=== PATIENT | male | born 1990 | race Caucasian/White ===

== ENCOUNTER 2016-12-13 07:12 | Emergency (ER) | payer MEDICAID, OTHER ==
[~2016-12-13 07:12] MED LIST: /LAMO10TA PO; ADDE30CA PO; ADDE5TAB5 PO; AMBI10TA PO; AMOX500C PO; ANBEEL MT; ATARAX OR; EFFEXOR XR PO; GABA300C3 PO; IBUP60TA PO; LAMI25TA OR; NAPR500T OR; NEUR300C PO; PAXI30TA11 PO; RISP4TAB33 PO; SERO200T PO; TRAZ100T OR; TRAZ100T2 PO; TYLE325C PO; ZANA4TAB PO
[2016-12-13 07:51] LABS: MEAN CORPUSCULAR HEMOGLOBIN 30.7 pg (27.0-33.0); MEAN CORPUSCULAR HGB CONC 34.5 g/dl (32.0-36.5); MEAN CORPUSCULAR VOLUME 89.1 fl (80.0-96.0); WHITE BLOOD COUNT 6.6 K/mm3 (4.0-10.0)
--- NOTE | 2016-12-13 08:12 | REP ---
LEFT HAND SERIES: Four views. HISTORY: Trauma. FINDINGS: Four views of the left hand demonstrate normal bones, joints, and soft tissues. No fracture or subluxation is seen. IMPRESSION: Negative views of the left hand. Signed by Jam Dumas MD 12/13/2016 08:23 A
--- NOTE | 2016-12-13 08:14 | REP ---
LEFT ELBOW SERIES: Four views. HISTORY: Trauma. FINDINGS: Four views of the left elbow demonstrate normal bones, joints, and soft tissues. No fracture subluxation or joint effusion is seen. IMPRESSION: Negative left elbow series. Signed by Jam Dumas MD 12/13/2016 08:24 A
[2016-12-13 08:27] LABS: ALBUMIN 3.9 GM/DL (3.2-5.2); ALKALINE PHOSPHATASE 80 U/L (45-117); ALT/SGPT 15 U/L (12-78); ANION GAP 6 MEQ/L (8-16); AST/SGOT 15 U/L (15-37); BILIRUBIN,DIRECT 0.3 MG/DL (0.0-0.2); BILIRUBIN,TOTAL 1.3 MG/DL (0.2-1.0); BLOOD UREA NITROGEN 15 MG/DL (7-18); CALCIUM LEVEL 8.7 MG/DL (8.5-10.1); CARBON DIOXIDE LEVEL 31 MEQ/L (21-32); CHLORIDE LEVEL 108 MEQ/L (98-107); CREATININE FOR GFR 1.12 MG/DL (0.70-1.30); GLOMERULAR FILTRATION RATE > 60.0 (>60); GLUCOSE, FASTING 87 MG/DL (70-105); POTASSIUM SERUM 3.8 MEQ/L (3.5-5.1); SODIUM LEVEL 145 MEQ/L (136-145); TOTAL PROTEIN 6.5 GM/DL (6.4-8.2)
[2016-12-13] MEDS ORDERED: GABAPENTIN 100 MG CAP As Ordered ONE ×2 (14:07→20:13)
[2016-12-13] MEDS ORDERED: LORazepam 1 MG TAB As Ordered ONE (14:07)
[2016-12-13 15:22] LABS: AMPHETAMINES LEVEL URINE NEGATIVE (NEGATIVE); BENZODIAZEPINES URINE NEGATIVE (NEGATIVE); COCAINE METABOLITE URINE POSITIVE (NEGATIVE); CONTROL LINE INT CTR LINE PRESENT; METHADONE URINE NEGATIVE (NEGATIVE); OPIATES URINE NEGATIVE (NEGATIVE); TRICYCLIC ANTIDEPRESS URINE NEGATIVE (NEGATIVE)
[2016-12-13] MEDS ORDERED: QUEtiapine FUMARATE 100 MG TAB As Ordered ONE (20:12)
[2016-12-14] MEDS ORDERED: PARoxetine 10MG TABLET As Ordered ONE (08:11)
[2016-12-14] MEDS ORDERED: GABAPENTIN 100 MG CAP As Ordered ONE (08:55)
--- NOTE | 2016-12-14 09:08 | EDDOCDS ---
Physician Documentation [facility] Name: Yoan Moreira Age: 26 yrs Sex: Male : 1990 Arrival Date: 12/13/2016 Time: 07:12 Bed BHU1 Private MD: Disposition: 12/13/16 20:33 Transfer ordered to [facility]. Diagnosis are Suicidal ideations, Adult antisocial behavior. - Reason for transfer: Higher level of care. - Accepting physician is Dr Ruiz. - Condition is Stable. - Problem is an ongoing problem. - Symptoms have improved. Historical: - Allergies: no known allergies; - Home Meds: 1. Adderall XR 30 mg Oral cp24 1 cap once daily 2. Ambien 10 mg Oral tab 1 tab once daily 3. Paxil 30 mg Oral tab 1 tab once daily 4. Seroquel 200 mg oral tab once daily 5. gabapentin 400 mg Oral cap 1 cap 3 times per day pt hasn't taken in a few weeks - PMHx: ADHD; Anxiety; Depression; impulse control disorder; Mood Disorder; - PSHx: Tonsillectomy; - Social history: Smoking status: Patient uses tobacco products, heavy tobacco smoker. No barriers to communication noted, The patient speaks fluent Macedonian, Speaks appropriately for age. - Family history: Not pertinent. - : The pt / caregiver states he / she is not on anticoagulants. Home medication list is obtained from the patient. - Exposure Risk Screening:: None identified. Vital Signs: 12/13 09:13 BP 116 / 67; Pulse 82; Resp 16; Temp 98.2(O); Pulse Ox 97% on R/A; Weight 79.38 kg / bcj 175 lbs; Height 6 ft. 2 in. (187.96 cm); Pain 00/10; 11:06 BP 122 / 56; Pulse 90; Resp 16; Temp 97.9(O); Pulse Ox 98% on R/A; Pain 0/10; bcj 19:30 BP 118 / 69; Pulse 94; Resp 18; Temp 98.4(O); Pain 0/10; mf4 02 06:08 BP 114 / 56; Pulse 59; Resp 16; Temp 96.2(O); Pain 0/10; mf4 09:02 BP 107 / 65; Pulse 83; Resp 17; Temp 98; Pulse Ox 99% on R/A; mk4 12/13 09:13 Body Mass Index 22.47 (79.38 kg, 187.96 cm) [facility] MDM: 12/13 07:28 Consult PFS/PSA/Aviation Safety Officer ordered. sd1 07:28 Consult PFS/PSA/Aviation Safety Officer: Patient's case requires discussion with on-call sd1 Psychiatrist ordered. 07:28 PSA/PFS to call Nursing Educational Program Director, to enter patient data on [place] Safe Act if patient sd1 involuntarily admitted or transferred for SI or HI ordered. 07:28 Confirm accurate psychiatric medication list and times of last dosage ordered. sd1 07:28 Detain Pt Until Medically/PFS Cleared ordered. sd1 07:29 Acetaminophen Level Ordered. EDMS 07:29 Basic Metabolic Profile Ordered. EDMS 07:29 Complete Blood Count Ordered. EDMS 07:29 Drug Eval Toxicology ED Only Ordered. EDMS 07:29 Ethyl Alcohol (ethanol) Ordered. EDMS 07:29 Liver Profile Ordered. EDMS 07:29 Salicylate Level Ordered. EDMS 07:29 Thyroid Stimulating Hormone Ordered. EDMS 07:29 Elbow, Complete Ordered. EDMS 07:49 Consult PFS/PSA/Aviation Safety Officer complete. [facility] 07:50 Hand, Complete Ordered. EDMS 07:52 REGULAR DIET PLASTIC DURBIN+DIET ordered. EDMS 08:08 M[facility] Legal paperwork was scanned into [employer] and attached to record. ac 08:20 Complete Blood Count Reviewed. sd1 08:20 Elbow, Complete Reviewed. sd1 08:20 Hand, Complete Reviewed. sd1 08:56 Acetaminophen Level Reviewed. sd1 08:56 Basic Metabolic Profile Reviewed. sd1 08:56 Liver Profile Reviewed. sd1 08:56 Salicylate Level Reviewed. sd1 08:56 Ethyl Alcohol (ethanol) Reviewed. sd1 08:56 Thyroid Stimulating Hormone Reviewed. sd1 08:56 Elbow, Complete Reviewed. sd1 08:56 Hand, Complete Reviewed. sd1 09:25 Financial registration complete. mpb 09:47 Consult PFS/PSA/Aviation Safety Officer: Patient's case requires discussion with on-call ac Psychiatrist complete. 09:47 PSA/PFS to call Nursing Educational Program Director, to enter patient data on [place] Safe [place] if patient ac involuntarily admitted or transferred for SI or HI complete. 11:21 REGULAR DIET PLASTIC DURBIN+DIET ordered. EDMS 14:04 LORazepam 2 mg PO once ordered. sd1 14:05 Gabapentin 300 mg PO once ordered. [facility] 16:47 REGULAR DIET PLASTIC DURBIN+DIET ordered. EDMS 18:35 Drug Eval Toxicology ED Only Reviewed. sd1 19:49 Gabapentin 300 mg PO once ordered. mf4 19:49 SEROquel 200 mg PO once ordered. 4 12/14 05:02 REGULAR DIET PLASTIC DURBIN+DIET ordered. EDMS 07:51 PARoxetine 30 mg PO once ordered. ml6 07:51 adderal xr 30 mg PO once ordered. ml6 08:58 Gabapentin 400 mg PO once ordered. mk4 Administered Medications: 12/13 14:10 Drug: LORazepam 2 mg [lorazepam 1 mg tablet (2 tabs)] Route: PO; [facility] 14:10 Drug: Gabapentin 300 mg [gabapentin 100 mg capsule (3 caps)] Route: PO; [facility] 20:20 Drug: Gabapentin 300 mg [gabapentin 100 mg capsule (3 caps)] Route: PO; [facility] 20:20 Drug: SEROquel 200 mg Route: PO; [facility] 12/14 08:49 Not Given (not available): adderal xr 30 mg PO once ml6 08:58 Drug: PARoxetine 30 mg [paroxetine 10 mg tablet (3 tabs)] Route: PO; mk4 08:58 Drug: Gabapentin 400 mg [gabapentin 100 mg capsule (4 caps)] Route: PO; mk4 Signatures: Dispatcher [employer] EDMS Bisi Linder MD MD sd1 Olivier Lofton RN RN bcj Carter, Andy, PSA PSA Froy Lovell RN RN ml6 Dl Adam LPN LPN 4 Beth Monge RN RN Percy Hansen DO DO [id number] Lorraine Nelson RN RN mk4 Alex Campos, Antoni Corrales mpb The chart was reviewed and I authenticate all verbal orders and agree with the evaluation and treatment provided.Corrections: (The following items were deleted from the chart) 12/13 07:57 07:29 Hand, complete+XR ordered. EDMS EDMS 07:57 07:48 Hand, complete+XR ordered. EDMS EDMS MTDD
--- NOTE | 2016-12-14 09:08 | EDDOCDS ---
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 Eval Toxicology ED Only; SPEC'M 12/13/16 14:48 Test: AMPHETAMINES LEVEL URINE; Value: NEGATIVE; Range: NEGATIVE; Status: F Test: BARBITURATES URINE; Value: NEGATIVE; Range: NEGATIVE; Status: F Test: BENZODIAZEPINES URINE; Value: NEGATIVE; Range: NEGATIVE; Status: F Test: CANNABINOIDS URINE; Value: POSITIVE; Range: NEGATIVE; Abnormal: Above high normal; Status: F Test: COCAINE METABOLITE URINE; Value: POSITIVE; Range: NEGATIVE; Abnormal: Above high normal; Status: F Test: METHADONE URINE; Value: NEGATIVE; Range: NEGATIVE; Status: F Test: OPIATES URINE; Value: NEGATIVE; Range: NEGATIVE; Status: F Test: TRICYCLIC ANTIDEPRESS URINE; Value: NEGATIVE; Range: NEGATIVE; Status: F Test Note: ; FALSE POSITIVE RESULTS CAN BE CAUSED BY THE USE OF PANTOPRAZOLE (PROTONIX). Lab Order: Ethyl Alcohol (ethanol); SPEC'M 12/13/17 07:45 Test: ETHYL ALCOHOL (ETHANOL); Value: < 0.003; Range: 0.000-0.010; Units: %; Status: F Lab Order: Liver Profile; 12/13/16 07:45 Test: AST/SGOT; Value: 15; Range: 15-37; Units: U/L; Status: F Test: ALT/SGPT; Value: 15; Range: 12-78; Units: U/L; Status: F Test: ALKALINE PHOSPHATASE; Value: 80; Range: 45-117; Units: U/L; Status: F Test: BILIRUBIN,TOTAL; Value: 1.3; Range: 0.2-1.0; Abnormal: Above high normal; Units: MG/DL; Status: F Test: BILIRUBIN,DIRECT; Value: 0.3; Range: 0.0-0.2; Abnormal: Above high normal; Units: MG/DL; Status: F Test: TOTAL PROTEIN; Value: 6.5; Range: 6.4-8.2; Units: GM/DL; Status: F Test: ALBUMIN; Value: 3.9; Range: 3.2-5.2; Units: GM/DL; Status: F Test: ALBUMIN/GLOBULIN RATIO; Value: 1.50; Range: 1.00-1.93; Status: F Lab Order: Salicylate Level; 12/13/16 07:45 Test: SALICYLATE LEVEL; Value: 2.6; Range: 5.0-30.0; Abnormal: Below low normal; Units: MG/DL; Status: F Lab Order: Thyroid Stimulating Hormone; 12/13/16 07:45 Test: THYROID STIMULATING HORMONE; Value: 2.000; Range: 0.358-3.740; Units: uIU/ML; Status: F Radiology Order: Elbow, Complete Test: Elbow, Complete REASON FOR EXAMINATION: Trauma; LEFT ELBOW SERIES: Four views.; ; HISTORY: Trauma.; ; FINDINGS: Four views of the left elbow demonstrate normal bones, joints, and; soft tissues. No fracture subluxation or joint effusion is seen.; ; IMPRESSION:; ; Negative left elbow series.; ; ; Signed by; Jam Dumas MD 12/13/2016 08:24 A; Radiology Order: Hand, Complete Test: Hand, Complete REASON FOR EXAMINATION: Trauma; LEFT HAND SERIES: Four views.; ; HISTORY: Trauma.; ; FINDINGS: Four views of the left hand demonstrate normal bones, joints, and soft; tissues. No fracture or subluxation is seen.; ; IMPRESSION:; ; Negative views of the left hand.; ; ; ; ; Signed by; Jam Dumas MD 12/13/2016 08:23 A; Outcome: 20:33 ER care complete, transfer ordered by Provider. 11 12/14 08:56 Discharge Assessment: Patient awake and alert. Discharge Assessment: patient obdulia administered narcotics - no. [facility] ambulance report to accompanying personnel narinder rangel and yvonne bethea. The following High Risk Discharge criteria are identified: None. Condition: stable. No special radiology studies were completed. 09:07 Patient left the ED. obdulia Signatures: Dispatcher [employer] EDMS Bisi Linder MD MD sd1 Olivier Lofton, RN RN Beth Rodriguez, PRODUCTION ASSEMBLY OPERATOR PRODUCTION ASSEMBLY OPERATOR jam1 Maria Rowley, PSA PSA ca Amanuel Gonzales, PSA PSA ac Gokul, Lali, PSA PSA ms Judy, [employer], Security Aide Securpjf Rylee Chambers, PSA PSA jfb Dl Adam,COLLECTOR OF AQUARIUM SPECIMENS COLLECTOR OF AQUARIUM SPECIMENS mf4 Freddy Kwong dpPercy Boateng, DO DO cs11 Rochelle, Andressa, PRODUCTION ASSEMBLY OPERATOR PRODUCTION ASSEMBLY OPERATOR tmm1 Lorraine Nelson, RN RN mk4 Sandra Valdez, Glycerin Operator Unit Ghislaine Jaimes,RN RN js15 Alex Campos, Reg Reg Jodi Benavides2 Froy Barragan RN ml6 MTDD
--- NOTE | 2016-12-16 10:07 | EDDOCDS ---
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 Abnormal: Above high normal; Units: MEQ/L; Status: F Test: CARBON DIOXIDE LEVEL; Value: 31; Range: 21-32; Units: MEQ/L; Status: F Test: ANION GAP; Value: 6; Range: 8-16; Abnormal: Below low normal; Units: MEQ/L; Status: F Test: CALCIUM LEVEL; Value: 8.7; Range: 8.5-10.1; Units: MG/DL; Status: F Test Note: ; Units are mL/min/1.73 m2 Chronic Kidney Disease Staging per NKF: Stage I & II GFR >=60 Normal to Mildly Decreased Stage III GFR 30-59 Moderately Decreased Stage IV GFR 15-29 Severely Decreased Stage V GFR <15 Very Little GFR Left ESRD GFR <15 on SWAHILI TEACHER Lab Order: Complete Blood Count; [facility]' 12/13/16 07:45 Test: WHITE BLOOD COUNT; Value: 6.6; Range: 4.0-10.0; Units: K/mm3; Status: F Test: RED BLOOD COUNT; Value: 4.78; Range: 4.30-6.10; Units: M/mm3; Status: F Test: HEMOGLOBIN; Value: 14.7; Range: 14.0-18.0; Units: g/dl; Status: F Test: HEMATOCRIT; Value: 42.5; Range: 42.0-52.0; Units: %; Status: F Test: MEAN CORPUSCULAR VOLUME; Value: 89.1; Range: 80.0-96.0; Units: fl; Status: F Test: MEAN CORPUSCULAR HEMOGLOBIN; Value: 30.7; Range: 27.0-33.0; Units: pg; Status: F Test: MEAN CORPUSCULAR HGB CONC; Value: 34.5; Range: 32.0-36.5; Units: g/dl; Status: F Test: RED CELL DISTRIBUTION WIDTH; Value: 13.0; Range: 11.5-14.5; Units: %; Status: F Test: PLATELET COUNT, AUTOMATED; Value: 191; Range: 150-450; Units: k/mm3; Status: F Lab Order: Drug Eval Toxicology ED Only; SPEC'M 12/13/16 14:48 Test: AMPHETAMINES LEVEL URINE; Value: NEGATIVE; Range: NEGATIVE; Status: F Test: BARBITURATES URINE; Value: NEGATIVE; Range: NEGATIVE; Status: F Test: BENZODIAZEPINES URINE; Value: NEGATIVE; Range: NEGATIVE; Status: F Test: CANNABINOIDS URINE; Value: POSITIVE; Range: NEGATIVE; Abnormal: Above high normal; Status: F Test: COCAINE METABOLITE URINE; Value: POSITIVE; Range: NEGATIVE; Abnormal: Above high normal; Status: F Test: METHADONE URINE; Value: NEGATIVE; Range: NEGATIVE; Status: F Test: OPIATES URINE; Value: NEGATIVE; Range: NEGATIVE; Status: F Test: TRICYCLIC ANTIDEPRESS URINE; Value: NEGATIVE; Range: NEGATIVE; Status: F Test Note: ; FALSE POSITIVE RESULTS CAN BE CAUSED BY THE USE OF PANTOPRAZOLE (PROTONIX). Lab Order: Ethyl Alcohol (ethanol); SPEC'M 12/13/16 07:45 Test: ETHYL ALCOHOL (ETHANOL); Value: < 0.003; Range: 0.000-0.010; Units: %; Status: F Lab Order: Liver Profile; SPEC'M 12/13/16 07:45 Test: AST/SGOT; Value: 15; Range: 15-37; Units: U/L; Status: F Test: ALT/SGPT; Value: 15; Range: 12-78; Units: U/L; Status: F Test: ALKALINE PHOSPHATASE; Value: 80; Range: 45-117; Units: U/L; Status: F Test: BILIRUBIN,TOTAL; Value: 1.3; Range: 0.2-1.0; Abnormal: Above high normal; Units: MG/DL; Status: F Test: BILIRUBIN,DIRECT; Value: 0.3; Range: 0.0-0.2; Abnormal: Above high normal; Units: MG/DL; Status: F Test: TOTAL PROTEIN; Value: 6.5; Range: 6.4-8.2; Units: GM/DL; Status: F Test: ALBUMIN; Value: 3.9; Range: 3.2-5.2; Units: GM/DL; Status: F Test: ALBUMIN/GLOBULIN RATIO; Value: 1.50; Range: 1.00-1.93; Status: F Lab Order: Salicylate Level; SPEC'M 12/13/16 07:45 Test: SALICYLATE LEVEL; Value: 2.6; Range: 5.0-30.0; Abnormal: Below low normal; Units: MG/DL; Status: F Lab Order: Thyroid Stimulating Hormone; SPEC'M 12/13/16 07:45 Test: THYROID STIMULATING HORMONE; Value: 2.000; Range: 0.358-3.740; Units: uIU/ML; Status: F Radiology Order: Elbow, Complete Test: Elbow, Complete REASON FOR EXAMINATION: Trauma; LEFT ELBOW SERIES: Four views.; ; HISTORY: Trauma.; ; FINDINGS: Four views of the left elbow demonstrate normal bones, joints, and; soft tissues. No fracture subluxation or joint effusion is seen.; ; IMPRESSION:; ; Negative left elbow series.; ; ; Signed by; Jam Dumas MD 12/13/2016 08:24 A; Radiology Order: Hand, Complete Test: Hand, Complete REASON FOR EXAMINATION: Trauma; LEFT HAND SERIES: Four views.; ; HISTORY: Trauma.; ; FINDINGS: Four views of the left hand demonstrate normal bones, joints, and soft; tissues. No fracture or subluxation is seen.; ; IMPRESSION:; ; Negative views of the left hand.; ; ; ; ; Signed by; Jam Dumas MD 12/13/2016 08:23 A; Outcome: 12/13 20:33 ER care complete, transfer ordered by Provider. cs11 12/14 08:56 Discharge Assessment: Patient awake and alert. Discharge Assessment: patient mk4 administered narcotics - no. Transferred to [facility] by EMS ground [facility] ambulance report to accompanying personnel narinder rangel and yvonne bethea. The following High Risk Discharge criteria are identified: None. Condition: stable. No special radiology studies were completed. 09:07 Patient left the ED. mk4 Signatures: Dispatcher [employer] EDNC Bisi Linder MD MD sd1 Mercedes Butler RN RN Olivier Murray RN RN Beth Rodriguez PCA PHYSICAL THERAPY TECHNICIAN jam1 Amrik, Maria, PSA PSA ca Christian, Amanuel, PSA PSA ac Lali Hodgson, PSA PSA ms Reji Alanna, Reg Reg gb Taqueria Kim, Froy Oglesby, RN RN ml6 Rylee Chambers, PSA PSA jfb Dl Adam,MACHINE SHORTHAND REPORTER MACHINE SHORTHAND REPORTER mf4 Varghese, Freddy dpPercy Boateng, DO DO cs11 Rochelle, Andressa, PHYSICAL THERAPY TECHNICIAN PHYSICAL THERAPY TECHNICIAN tmm1 Lorraine Nelson, RN RN mk4 Sandra Valdez, Program Proposals Coordinator Unit jlm Ghislaine Gutierrez,RN RN js15 Alex Campos, Reg Reg mpb Jodi Rojas2 Chart Complete MTDD
--- NOTE | 2016-12-16 10:07 | EDDOCDS ---
Physician Documentation [facility] Name: Yoan Garcia Age: 26 yrs Sex: Male : 1990 Arrival Date: 12/13/2016 Time: 07:12 Bed BHU1 Private MD: Disposition: 12/13/16 20:33 Transfer ordered to [facility]. Diagnosis are Suicidal ideations, Adult antisocial behavior. - Reason for transfer: Higher level of care. - Accepting physician is Dr Ruiz. - Condition is Stable. - Problem is an ongoing problem. - Symptoms have improved. Historical: - Allergies: no known allergies; - Home Meds: 1. Adderall XR 30 mg Oral cp24 1 cap once daily 2. Ambien 10 mg Oral tab 1 tab once daily 3. Paxil 30 mg Oral tab 1 tab once daily 4. Seroquel 200 mg oral tab once daily 5. gabapentin 400 mg Oral cap 1 cap 3 times per day pt hasn't taken in a few weeks - PMHx: ADHD; Anxiety; Depression; impulse control disorder; Mood Disorder; - PSHx: Tonsillectomy; - Social history: Smoking status: Patient uses tobacco products, heavy tobacco smoker. No barriers to communication noted, The patient speaks fluent Lithuanian, Speaks appropriately for age. - Family history: Not pertinent. - : The pt / caregiver states he / she is not on anticoagulants. Home medication list is obtained from the patient. - Exposure Risk Screening:: None identified. Vital Signs: 12/13 09:13 BP 116 / 67; Pulse 82; Resp 16; Temp 98.2(O); Pulse Ox 97% on R/A; Weight 79.38 kg / bcj 175 lbs; Height 6 ft. 2 in. (187.96 cm); Pain 00/10; 11:06 BP 122 / 56; Pulse 90; Resp 16; Temp 97.9(O); Pulse Ox 98% on R/A; Pain 0/10; bcj 19:30 BP 118 / 69; Pulse 94; Resp 18; Temp 98.4(O); Pain 0/10; mf4 02 06:08 BP 114 / 56; Pulse 59; Resp 16; Temp 96.2(O); Pain 0/10; mf4 09:02 BP 107 / 65; Pulse 83; Resp 17; Temp 98; Pulse Ox 99% on R/A; mk4 12/13 09:13 Body Mass Index 22.47 (79.38 kg, 187.96 cm) [facility] MDM: 12/13 07:28 Consult PFS/PSA/Decision Unit Rn ordered. sd1 07:28 Consult PFS/PSA/Decision Unit Rn: Patient's case requires discussion with on-call sd1 Psychiatrist ordered. 07:28 PSA/PFS to call Nursing Rn Telephonic, to enter patient data on [place] Safe [place] if patient sd1 involuntarily admitted or transferred for SI or HI ordered. 07:28 Confirm accurate psychiatric medication list and times of last dosage ordered. sd1 07:28 Detain Pt Until Medically/PFS Cleared ordered. sd1 07:29 Acetaminophen Level Ordered. EDMS 07:29 Basic Metabolic Profile Ordered. EDMS 07:29 Complete Blood Count Ordered. EDMS 07:29 Drug Eval Toxicology ED Only Ordered. EDMS 07:29 Ethyl Alcohol (ethanol) Ordered. EDMS 07:29 Liver Profile Ordered. EDMS 07:29 Salicylate Level Ordered. EDMS 07:29 Thyroid Stimulating Hormone Ordered. EDMS 07:29 Elbow, Complete Ordered. EDMS 07:49 Consult PFS/PSA/Decision Unit Rn complete. j 07:50 Hand, Complete Ordered. EDMS 07:52 REGULAR DIET PLASTIC DURBIN+DIET ordered. EDMS 08:08 MHE Legal paperwork was scanned into [employer] and attached to record. ac 08:20 Complete Blood Count Reviewed. sd1 08:20 Elbow, Complete Reviewed. sd1 08:20 Hand, Complete Reviewed. sd1 08:56 Acetaminophen Level Reviewed. sd1 08:56 Basic Metabolic Profile Reviewed. sd1 08:56 Liver Profile Reviewed. sd1 08:56 Salicylate Level Reviewed. sd1 08:56 Ethyl Alcohol (ethanol) Reviewed. sd1 08:56 Thyroid Stimulating Hormone Reviewed. sd1 08:56 Elbow, Complete Reviewed. sd1 08:56 Hand, Complete Reviewed. sd1 09:25 Financial registration complete. mpb 09:47 Consult PFS/PSA/Decision Unit Rn: Patient's case requires discussion with on-call ac Psychiatrist complete. 09:47 PSA/PFS to call Nursing Rn Telephonic, to enter [place] if patient ac involuntarily admitted or transferred for SI or HI complete. 11:21 REGULAR DIET PLASTIC DURBIN+DIET ordered. EDMS 14:04 LORazepam 2 mg PO once ordered. sd1 14:05 Gabapentin 300 mg PO once ordered. cjh 16:47 REGULAR DIET PLASTIC DURBIN+DIET ordered. EDMS 18:35 Drug Eval Toxicology ED Only Reviewed. sd1 19:49 Gabapentin 300 mg PO once ordered. mf4 19:49 SEROquel 200 mg PO once ordered. mf4 02 05:02 REGULAR DIET PLASTIC DURBIN+DIET ordered. EDMS 07:51 PARoxetine 30 mg PO once ordered. ml6 07:51 adderal xr 30 mg PO once ordered. ml6 08:58 Gabapentin 400 mg PO once ordered. mk4 14:00 ED course: just notified from clinic charge nurse that the pt had verbally threatened Suad Gonzales. I spoke directly with Kelly Rowley who reports the pt tristen all over simons in P1 and verbally threatening suad gonzales. pictures were taked by kelly rowley. suad escotoer was notified by Ana María rodriguez. Samia , PIT SLAGMAN Rn Telephonic, was notified by me. Kelly Rowley stated that Lali Roberts is aware. I had requested to Samia, MARIA R Sup, that legal be made aware, AOC be made aware, and authorizes be made aware. Officer Horr here currently with Lali Roberts speaking to Suad with officer present to address issues. Suad was referred to Deborah France by Ana María. matty. 14:48 T-Sheet-- Draft Copy was scanned into [employer] and attached to record. gb Administered Medications: 12/13 14:10 Drug: LORazepam 2 mg [lorazepam 1 mg tablet (2 tabs)] Route: PO; bcj 14:10 Drug: Gabapentin 300 mg [gabapentin 100 mg capsule (3 caps)] Route: PO; bcj 20:20 Drug: Gabapentin 300 mg [gabapentin 100 mg capsule (3 caps)] Route: PO; mf4 20:20 Drug: SEROquel 200 mg Route: PO; mf4 12/14 08:49 Not Given (not available): adderal xr 30 mg PO once ml6 08:58 Drug: PARoxetine 30 mg [paroxetine 10 mg tablet (3 tabs)] Route: PO; mk4 08:58 Drug: Gabapentin 400 mg [gabapentin 100 mg capsule (4 caps)] Route: PO; mk4 Signatures: Dispatcher [employer] EDMS Bisi Linder MD MD sd1 Roger Marie MD MD ml Johnson, Bruce, RN RN bcj Suda Gonzales, VELMA PSA ac Alanna Mendoza, Reg Reg gb Froy Barragan, RN RN ml6 Dl Adam,STERILIZER MACHINE OPERATOR STERILIZER MACHINE OPERATOR mf4 Beth MongeRN RN [facility] Percy Aguilar, DO DO cs11 Lorraine Nelson RN RN mk4 Alex Campos, Reg Reg mpb The chart was reviewed and I authenticate all verbal orders and agree with the evaluation and treatment provided.Corrections: (The following items were deleted from the chart) 12/13 07:57 07:29 Hand, complete+XR ordered. EDMS EDMS 07:48 Hand, complete+XR ordered. EDMS EDMS Attachments: 12/14 14:48 T-Sheet-- Draft Copy gb Chart Complete MTDD
--- NOTE | 2016-12-16 10:07 | EDDOCDS ---
Physician Documentation [facility] Name: Yoan Garcia Age: 26 yrs Sex: Male : 1990 Arrival Date: 12/13/2016 Time: 07:12 Bed BHU1 Private MD: Disposition: 12/13/16 20:33 [facility] Diagnosis are Suicidal ideations, Adult antisocial behavior. - Reason for transfer: Higher level of care. - Accepting physician is Dr Ruiz. - Condition is Stable. - Problem is an ongoing problem. - Symptoms have improved. Historical: - Allergies: no known allergies; - Home Meds: 1. Adderall XR 30 mg Oral cp24 1 cap once daily 2. Ambien 10 mg Oral tab 1 tab once daily 3. Paxil 30 mg Oral tab 1 tab once daily 4. Seroquel 200 mg oral tab once daily 5. gabapentin 400 mg Oral cap 1 cap 3 times per day pt hasn't taken in a few weeks - PMHx: ADHD; Anxiety; Depression; impulse control disorder; Mood Disorder; - PSHx: Tonsillectomy; - Social history: Smoking status: Patient uses tobacco products, heavy tobacco smoker. No barriers to communication noted, The patient speaks fluent Spanish, Speaks appropriately for age. - Family history: Not pertinent. - : The pt / caregiver states he / she is not on anticoagulants. Home medication list is obtained from the patient. - Exposure Risk Screening:: None identified. Vital Signs: 12/13 09:13 BP 116 / 67; Pulse 82; Resp 16; Temp 98.2(O); Pulse Ox 97% on R/A; Weight 79.38 kg / bcj 175 lbs; Height 6 ft. 2 in. (187.96 cm); Pain 00/10; 11:06 BP 122 / 56; Pulse 90; Resp 16; Temp 97.9(O); Pulse Ox 98% on R/A; Pain 0/10; bcj 19:30 BP 118 / 69; Pulse 94; Resp 18; Temp 98.4(O); Pain 0/10; mf4 02 06:08 BP 114 / 56; Pulse 59; Resp 16; Temp 96.2(O); Pain 0/10; mf4 09:02 BP 107 / 65; Pulse 83; Resp 17; Temp 98; Pulse Ox 99% on R/A; mk4 12/13 09:13 Body Mass Index 22.47 (79.38 kg, 187.96 cm) [facility] MDM: 12/13 07:28 Consult PFS/PSA/Substance Abuse Clinician ordered. sd1 07:28 Consult PFS/PSA/Substance Abuse Clinician: Patient's case requires discussion with on-call sd1 Psychiatrist ordered. 07:28 PSA/PFS to call Nursing Business Excellence Leader, to enter [place] if patient sd1 involuntarily admitted or transferred for SI or HI ordered. 07:28 Confirm accurate psychiatric medication list and times of last dosage ordered. sd1 07:28 Detain Pt Until Medically/PFS Cleared ordered. sd1 07:29 Acetaminophen Level Ordered. EDMS 07:29 Basic Metabolic Profile Ordered. EDMS 07:29 Complete Blood Count Ordered. EDMS 07:29 Drug Eval Toxicology ED Only Ordered. EDMS 07:29 Ethyl Alcohol (ethanol) Ordered. EDMS 07:29 Liver Profile Ordered. EDMS 07:29 Salicylate Level Ordered. EDMS 07:29 Thyroid Stimulating Hormone Ordered. EDMS 07:29 Elbow, Complete Ordered. EDMS 07:49 Consult PFS/PSA/Substance Abuse Clinician complete. j 07:50 Hand, Complete Ordered. EDMS 07:52 REGULAR DIET PLASTIC DURBIN+DIET ordered. EDMS 08:08 MHE Legal paperwork was scanned into [employer] and attached to record. ac 08:20 Complete Blood Count Reviewed. sd1 08:20 Elbow, Complete Reviewed. sd1 08:20 Hand, Complete Reviewed. sd1 08:56 Acetaminophen Level Reviewed. sd1 08:56 Basic Metabolic Profile Reviewed. sd1 08:56 Liver Profile Reviewed. sd1 08:56 Salicylate Level Reviewed. sd1 08:56 Ethyl Alcohol (ethanol) Reviewed. sd1 08:56 Thyroid Stimulating Hormone Reviewed. sd1 08:56 Elbow, Complete Reviewed. sd1 08:56 Hand, Complete Reviewed. sd1 09:25 Financial registration complete. mpb 09:47 Consult PFS/PSA/Substance Abuse Clinician: Patient's case requires discussion with on-call ac Psychiatrist complete. 09:47 PSA/PFS to call Nursing Business Excellence Leader, to [place] if patient ac involuntarily admitted or transferred for SI or HI complete. 11:21 REGULAR DIET PLASTIC DURBIN+DIET ordered. EDMS 14:04 LORazepam 2 mg PO once ordered. sd1 14:05 Gabapentin 300 mg PO once ordered. cjh 16:47 REGULAR DIET PLASTIC DURBIN+DIET ordered. EDMS 18:35 Drug Eval Toxicology ED Only Reviewed. sd1 19:49 Gabapentin 300 mg PO once ordered. mf4 19:49 SEROquel 200 mg PO once ordered. mf4 02 05:02 REGULAR DIET PLASTIC DURBIN+DIET ordered. EDMS 07:51 PARoxetine 30 mg PO once ordered. ml6 07:51 adderal xr 30 mg PO once ordered. ml6 08:58 Gabapentin 400 mg PO once ordered. mk4 14:00 ED course: just notified from [employer] fire charger operator that the pt had verbally threatened Suad Gonzales. I spoke directly with Kelly Rowley who reports the pt tristen all over simons in P1 and verbally threatening suad gonzales. pictures were taked by kelly rowley. suad escotoer was notified by Ana María rodriguez. Samia , LEAN SIX SIGMA SENIOR SPECIALIST Business Excellence Leader, was notified by me. Kelly Rowley stated that Lali Roberts is aware. I had requested to Samia, MARIA R Sup, that legal be made aware, AOC be made aware, and authorizes be made aware. Officer Horr here currently with Lail Roberts speaking to Suad with officer present to address issues. Suad was referred to Deborah France by Ana María. matty. 14:48 T-Sheet-- Draft Copy was scanned into [employer] and attached to record. gb Administered Medications: 12/13 14:10 Drug: LORazepam 2 mg [lorazepam 1 mg tablet (2 tabs)] Route: PO; bcj 14:10 Drug: Gabapentin 300 mg [gabapentin 100 mg capsule (3 caps)] Route: PO; bcj 20:20 Drug: Gabapentin 300 mg [gabapentin 100 mg capsule (3 caps)] Route: PO; mf4 20:20 Drug: SEROquel 200 mg Route: PO; mf4 12/14 08:49 Not Given (not available): adderal xr 30 mg PO once ml6 08:58 Drug: PARoxetine 30 mg [paroxetine 10 mg tablet (3 tabs)] Route: PO; mk4 08:58 Drug: Gabapentin 400 mg [gabapentin 100 mg capsule (4 caps)] Route: PO; mk4 Signatures: Dispatcher [employer] EDMS Bisi Linder MD MD sd1 Roger Marie MD MD ml Johnson, Bruce, RN RN bcj Suad Gonzales, VELMA PSA ac Alanna Mendoza, Reg Reg gb Froy Barragan, RN RN ml6 Dl Adam,INSTRUCTIONAL TECHNOLOGY TEACHER INSTRUCTIONAL TECHNOLOGY TEACHER mf4 Beth MongeRN RN [facility] Percy Aguilar, DO DO cs11 Lorraine Nelson RN RN mk4 Alex Campos, Reg Reg mpb The chart was reviewed and I authenticate all verbal orders and agree with the evaluation and treatment provided.Corrections: (The following items were deleted from the chart) 12/13 07:57 07:29 Hand, complete+XR ordered. EDMS EDMS 07:48 Hand, complete+XR ordered. EDMS EDMS Attachments: 12/14 14:48 T-Sheet-- Draft Copy gb Chart Complete MTDD
== END 2016-12-14 09:07 ==
LOC: M ED 07:12
DX: R45.851 Suicidal ideations (principal); F32.9 Major depressive disorder, single episode, unspecified; F41.9 Anxiety disorder, unspecified; F90.9 Attention-deficit hyperactivity disorder, unspecified type; F63.9 Impulse disorder, unspecified; Z79.899 Other long term (current) drug therapy
CPT/HCPCS: 36415; 73080; 73130; 80048; 80076; 80306; 84443; 85027; 99285; G0480

== ENCOUNTER 2016-12-29 14:21 | Emergency (ER) | payer OTHER | END 2016-12-29 15:05 | disposition left against medical advice (07) | LOC: M ED 14:21 | DX: J34.89 Other specified disorders of nose and nasal sinuses (principal); Z53.21 Procedure and treatment not carried out due to patient leaving prior to being seen by health care provider ==

== ENCOUNTER 2017-01-31 08:57 | Inpatient (IN) | payer OTHER ==
[~2017-01-31] VITALS: Ht 188 cm; Wt 71.4 kg
[2017-01-31 09:46] LABS: BASO % 0.7 % (0.0-1.0); EOS # 0.2 K/mm3 (0.0-0.50); EOS % 2.4 % (0.0-3.0); LARGE UNSTAINED CELL # 0.1 K/mm3 (0.0-0.4); LARGE UNSTAINED CELL % 1.4 % (0.0-4.0); LYMPH # 1.8 K/mm3 (1.5-6.5); LYMPH % 30.3 % (24.0-44.0); MEAN CORPUSCULAR HEMOGLOBIN 29.5 pg (27.0-33.0); MEAN CORPUSCULAR HGB CONC 33.9 g/dl (32.0-36.5); MONO # 0.4 K/mm3 (0.0-0.8); MONO % 5.9 % (0.0-5.0); NEUTROPHILS # 3.6 K/mm3 (1.8-7.7); NEUTROPHILS % 59.2 % (36.0-66.0); PLATELET COUNT, AUTOMATED 285 k/mm3 (150-450); RED CELL DISTRIBUTION WIDTH 12.9 % (11.5-14.5)
[2017-01-31 10:27] LABS: ALBUMIN 3.9 GM/DL (3.2-5.2); ALBUMIN/GLOBULIN RATIO 1.15 (1.00-1.93); ALKALINE PHOSPHATASE 95 U/L (45-117); ALT/SGPT 22 U/L (12-78); ANION GAP 7 MEQ/L (8-16); AST/SGOT 19 U/L (15-37); BILIRUBIN,DIRECT 0.2 MG/DL (0.0-0.2); BILIRUBIN,TOTAL 1.6 MG/DL (0.2-1.0); BLOOD UREA NITROGEN 11 MG/DL (7-18); CALCIUM LEVEL 8.8 MG/DL (8.5-10.1); CARBON DIOXIDE LEVEL 32 MEQ/L (21-32); CHLORIDE LEVEL 105 MEQ/L (98-107); CREATININE FOR GFR 1.28 MG/DL (0.70-1.30); GLOMERULAR FILTRATION RATE > 60.0 (>60); GLUCOSE, FASTING 43 MG/DL (70-105); POTASSIUM SERUM 3.7 MEQ/L (3.5-5.1); SODIUM LEVEL 144 MEQ/L (136-145); TOTAL PROTEIN 7.3 GM/DL (6.4-8.2)
[2017-01-31 13:54] LABS: METHADONE URINE NEGATIVE (NEGATIVE)
[2017-01-31 19:05] VITALS: BP 150/70
[2017-01-31] MEDS ORDERED: ACETAMINOPHEN TAB 650MG DOSE (2X325MG) PO PRN (19:15)
[2017-01-31] MEDS ORDERED: traZODone 50 MG TAB PO PRN (19:15)
[2017-01-31] MEDS ORDERED: MAALOX 30 ML SUSP *UDC PO PRN (19:15)
[2017-01-31] MEDS ORDERED: MOM 30ML SUSPENSION UDC PO PRN (19:15)
[2017-01-31] MEDS: CLINDAMYCIN 150 MG CAP PO SCH (22:00)
[2017-02-01 06:00] VITALS: BP 109/63
[2017-02-01] MEDS: CLINDAMYCIN 150 MG CAP PO SCH ×3 (06:54→21:13)
--- NOTE | 2017-02-01 09:25 | ECGEPIP ---
Stationary ECG Study [facility] - ED Test Date: 2017-01-31 Pat Name: ADELA BARRY Department: Room: - Gender: M Program Support Assistant: JABIER : 1990 Requested By: SERGE Sahu Order Number: [id number] Reading MD: Bisi Linder Measurements Intervals [place] Rate: 73 P: 67 WA: 147 QRS: 93 QRSD: 98 T: 82 QT: 364 QTc: 404 Interpretive Statements SINUS RHYTHM BORDERLINE RIGHT AXIS DEVIATION ST ELEVATION, PROBABLY EARLY REPOLARIZATION Electronically Signed On 02-01-2017 9:25:20 EDT by Bisi Linder
[2017-02-01] MEDS: NICOTINE 21MG/24HR 1 EA TRANSDERMAL TD SCH (15:56)
[2017-02-01 18:00] VITALS: BP 120/58
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
[2017-02-01] MEDS: QUEtiapine FUMARATE 200 MG TAB PO SCH (21:13)
[2017-02-01] MEDS: IBUPROFEN 800 MG TAB PO PRN (21:14)
[2017-02-02] MEDS: CLINDAMYCIN 150 MG CAP PO SCH ×3 (06:08→21:40)
[2017-02-02 06:39] VITALS: BP 130/61
--- NOTE | 2017-02-02 08:22 | HPE ---
DATE OF ADMISSION: 01/31/2017 Please refer psychiatric history and evaluation for further details on this admission. This examination and history is intended for medical issues which may need treatment and followup with consult on this 26-year-old male. ALLERGIES: No known allergies. PRIMARY CARE PROVIDER: He states he has none. PAST MEDICAL HISTORY: Depression, anxiety, mood disorder, attention deficit hyperactive disorder (ADHD), impulse control disorder, polysubstance abuse. PAST SURGICAL HISTORY: Tonsillectomy. SOCIAL HISTORY: Lives in [place]. States he is homeless. Marital status: Single. ETOH: He states he does not really drink. Illicit drugs: He state has been on a crack bush for a month and he has been on cocaine, took three days ago a large amount. Smokes cannabinoids or marijuana. HOME MEDICATIONS: He states he has not had over three days. Gabapentin 300 mg by mouth three times a day for mood stabilizer. Paxil 30 mg by mouth daily for depression. Seroquel 200 mg by mouth at bedtime (q.h.s.) for depression. Ambien 10 mg by mouth at bedtime (q.h.s.) as needed for insomnia. Adderall XR 30 mg by mouth daily for attention deficit hyperactive disorder (ADHD). 10 systems review was done. He complained of a severe toothache along with the upper part of his mouth and he has numerous cavities. Gums are swollen. LABORATORY STUDIES: White blood count (WBC) 6.0, hemoglobin 16.0, hematocrit 47.9, platelets 285. Electrolytes were normal. BUN was 11, creatine 1.28, total bilirubin up slightly at 1.6. Urine was positive for cocaine, positive for cannabinoids. PHYSICAL EXAMINATION: 26-year-old cooperative male, in no acute distress. Height 74 inches, weight 71.4 kg, body mass index (BMI) 20.2. Blood pressure 118/70, pulse 78, respirations 20, temperature 98. The patient is alert and oriented times three. Pupils equal and reactive to light. Extraocular muscles intact. Cornea and sclerae are clear. Conjunctivae normal. No facial asymmetry. Gums are swollen. Numerous caries along the frontal and molar, some abscessed. Tongue is midline. Neck is supple without lymphadenopathy, no thyromegaly, no goiter. Chest clear to auscultation without wheeze or retraction. Heart is regular. Abdomen benign. Bowel sounds are positive. /Rectal not done. Extremities: No cyanosis, clubbing or edema. Equal strength. Gait steady. Peripheral pulses equal and palpable bilaterally. Skin is warm and dry. IMPRESSION/PLAN: Psychiatric plan per psychiatry. Electrocardiogram (EKG) on file, 08/11/16, sinus rhythm. Followup: No primary care provider. Will attempt to establish primary care physician on discharge. Substance abuse withdrawal per psychiatry. Numerous caries and dental abscess. Clindamycin 300 mg one by mouth three times a day, ibuprofen 800 mg one by mouth every 8 hours as needed for pain.
[2017-02-02] MEDS: NICOTINE 21MG/24HR 1 EA TRANSDERMAL TD SCH (09:00)
[2017-02-02] MEDS: PARoxetine 25 MG CR TAB (PAXIL CR) PO SCH (09:16)
[2017-02-02] MEDS: IBUPROFEN 800 MG TAB PO PRN (09:44)
--- NOTE | 2017-02-02 16:46 | DS.PDOC ---
[facility] Discharge Summary Discharge Summary DATE OF ADMISSION: Jan 31, 2017 at 16:28 DATE OF DISCHARGE: 02/03/2017 DISCHARGE DIAGNOSES: 1. PTSD, chronic. 2. Borderline/antisocial traits. 3. Polysubstance abuse, severe, in controlled setting. REASON FOR ADMISSION: The patient was admitted due to overdose of gabapentin due to multiple psychosocial stressors and in the setting of severe intoxication. CONSULTANTS INVOLVED: None TREATMENT AND PROGRESS ON THE UNIT : Legal status on admission: 9.39 Medication Management: The patient was resumed on home Paxil, however it was changed to a controlled release formula becomes and 25 mg rather than his home 30 mg of instant release. He did well on the new controlled-release with no side effects. He was resumed on his home Seroquel 200 mg with no problems. He was not continued on his home Adderall as his polysubstance abuse makes this contraindicated. Psychotherapy: He did not attend groups during his stay Behavior: Primarily reserved to his room and guarded during most interviews Discharge planning: The patient was amenable to being referred to rehabilitation after he presented. After it was found that there was a possible bed placement the patient was excited and eagerly stated that he wished to go. DISCHARGE ASSESSMENT: 26-year-old man with a history of PTSD and subsequent substance abuse to cope with the chronic symptoms. He presented in the intoxicated state where he overdosed on gabapentin. MENTAL STATUS EXAMINATION ON DISCHARGE: General: Well dressed with good hygiene Speech: Spontaneous and fluid Thought processes: Linear and logical Thought content: Some anxiety about rehabilitation Abstract reasoning, and computation: Intact Description of associations: Intact Description of abnormal or psychotic thoughts:Denies any suicidal or homicidal ideation. Denies any auditory or visual hallucinations. Does not appear to be responding to internal stimuli. Does not appear to be endorsing any bizarre or paranoid ideation. Judgment: Fair Insight: Fair Orientation: Alert and orientated 3 Recent and remote memory: Intact Attention span and concentration: Intact Fund of knowledge: Adequate Mood: "Okay" Affect: Somewhat irritable PLAN/FOLLOWUP ARRANGEMENTS: The patient be transferred to rehabilitation tomorrow morning at 8 AM. The amount of time spent in the coordination of care for this patient was approximately 15 minutes. Vital Signs Vital Sign - Last 24 Hours 02/01/17 02/02/17 18:00 06:39 Temp 99.4 98.3 Pulse 94 61 Resp 16 14 B/P 120/58 130/61 Medications Scheduled Paroxetine Hydrochloride (Paxil Cr) 25 Mg Tab 25 MG PO DAILY DEPRESSION ( Reported) Quetiapine Fumerate (Seroquel) 200 Mg Tab 200 MG PO QHS ANXIETY/AGITATION ( Reported) Allergies Coded Allergies: No Known Drug Allergy (Verified Allergy, Unknown, 01/31/17) GME ATTESTATION My preceptor for this patient encounter was physically present in the building during the encounter and was fully available. As needed, all aspects of the patient interview, examination, medical decision making process, and medical care plan development were reviewed and approved by the preceptor. Preceptor is aware and concurs with the plan as stated in the body of this note and will attest to such by his/her cosignature. JOSE BURRELL DO Feb 02, 2017 16:46 during the encounter and was fully available. As needed, all aspects of the patient interview, examination, medical decision making process, and medical care plan development were reviewed and approved by the preceptor. Preceptor is aware and concurs with the plan as stated in the body of this note and will attest to such by his/her cosignature. JOSE BURRELL DO Feb 02, 2017 16:46
[2017-02-02 18:14] VITALS: BP 129/73
[2017-02-02] MEDS: QUEtiapine FUMARATE 200 MG TAB PO SCH (21:39)
[2017-02-03 06:16] VITALS: BP 104/50
[2017-02-03] MEDS ORDERED: PAXI25TA13 PO (06:22)
[2017-02-03] MEDS: CLINDAMYCIN 150 MG CAP PO SCH (06:36)
[2017-02-03] MEDS: IBUPROFEN 800 MG TAB PO PRN (06:44)
[2017-02-03] MEDS: PARoxetine 25 MG CR TAB (PAXIL CR) PO SCH (07:23)
== END 2017-02-03 07:30 | DRG 755 ==
LOC: M ED 09:38 → M ED INP 16:28 → M PSY 18:05
PROVIDERS: ADMIT Psychiatry & Neurology Child & Adolescent Psychiatry; ATTEND Psychiatry & Neurology Psychiatry
DX: F43.10 Post-traumatic stress disorder, unspecified (principal); F14.10 Cocaine abuse, uncomplicated; F60.3 Borderline personality disorder; F60.2 Antisocial personality disorder; Z79.899 Other long term (current) drug therapy; F12.10 Cannabis abuse, uncomplicated; K04.7 Periapical abscess without sinus

== ENCOUNTER → 2017-02-19 | Emergency (ER) | payer OTHER ==
[~2017-02-19] VITALS: Ht 188 cm; Wt 77.1 kg
[~2017-02-19] MED LIST changes: +GABA-282 PO; -GABA300C3 PO; +NORCOTAB PO; +PAXI25TA13 PO
[2017-02-19 18:23] VITALS: BP 141/72
== END | disposition home or self-care (01) ==
LOC: M ED 19:19
DX: K08.89 Other specified disorders of teeth and supporting structures (principal)

== ENCOUNTER 2017-03-04 02:40 | Emergency (ER) | payer OTHER ==
[~2017-03-04] VITALS: Ht 188 cm; Wt 72.6 kg
[2017-03-04 02:43] VITALS: BP 134/72
[2017-03-04] MEDS ORDERED: IBUP-1114 PO (02:47)
[2017-03-04] MEDS ORDERED: NORCOTAB PO (22:16)
== END 2017-03-04 04:16 | disposition left against medical advice (07) ==
LOC: M ED 04:10
DX: K08.9 Disorder of teeth and supporting structures, unspecified (principal); Z79.899 Other long term (current) drug therapy; F41.9 Anxiety disorder, unspecified; F32.9 Major depressive disorder, single episode, unspecified; F90.9 Attention-deficit hyperactivity disorder, unspecified type; F63.81 Intermittent explosive disorder; Z53.29 Procedure and treatment not carried out because of patient's decision for other reasons

== ENCOUNTER 2017-03-04 19:19 | Emergency (ER) | payer OTHER ==
[~2017-03-04] VITALS: Ht 188 cm; Wt 72.6 kg
[~2017-03-04 19:19] MED LIST changes: +IBUP-1114 PO
[2017-03-04 19:23] VITALS: BP 126/59
[2017-03-04] MEDS ORDERED: NORCO 5/325MG TABLET (BULK FOR ED) PO ONE (22:15)
[2017-03-04] MEDS ORDERED: AMOXICILLIN 500 MG CAP PO ONE (22:15)
[2017-03-04] MEDS ORDERED: NORCOTAB PO (22:16)
== END 2017-03-04 22:32 | disposition home or self-care (01) ==
LOC: M ED 20:24
DX: S02.5XXA Fracture of tooth (traumatic), initial encounter for closed fracture (principal); K02.9 Dental caries, unspecified; X58.XXXA Exposure to other specified factors, initial encounter; Y92.89 Other specified places as the place of occurrence of the external cause; Y93.89 Activity, other specified; Y99.8 Other external cause status; F17.200 Nicotine dependence, unspecified, uncomplicated; F90.9 Attention-deficit hyperactivity disorder, unspecified type; F33.9 Major depressive disorder, recurrent, unspecified; F41.9 Anxiety disorder, unspecified; Z79.899 Other long term (current) drug therapy

== ENCOUNTER 2017-04-02 14:42 | Emergency (ER) | payer OTHER ==
[~2017-04-02] VITALS: Ht 182.9 cm; Wt 77.1 kg
[2017-04-02 14:42] VITALS: BP 100/58
[2017-04-02] MEDS ORDERED: ACET-654 PO (14:49)
[2017-04-02] MEDS ORDERED: HYDR-3713 PO (14:58)
[2017-04-02] MEDS ORDERED: [UNRECOGNIZED DRUG - CODE] MT (14:58)
[2017-04-02] MEDS ORDERED: AMOX500C PO (14:58)
== END 2017-04-02 15:25 | disposition home or self-care (01) ==
LOC: M ED 15:05
DX: R51 Headache (principal); S02.5XXA Fracture of tooth (traumatic), initial encounter for closed fracture; W22.8XXA Striking against or struck by other objects, initial encounter; Y92.89 Other specified places as the place of occurrence of the external cause; Y93.89 Activity, other specified; Y99.8 Other external cause status; F99 Mental disorder, not otherwise specified; F17.210 Nicotine dependence, cigarettes, uncomplicated; Z79.899 Other long term (current) drug therapy

== ENCOUNTER 2017-04-09 05:54 | Emergency (ER) | payer OTHER ==
[~2017-04-09] VITALS: Ht 188 cm; Wt 77.1 kg
[~2017-04-09 05:54] MED LIST changes: +ACET-654 PO; +HYDR-3713 PO; +[UNRECOGNIZED DRUG - CODE] MT
[2017-04-09 05:57] VITALS: BP 105/65
[2017-04-09] MEDS ORDERED: PAXI30TA11 PO (06:05)
[2017-04-09] MEDS ORDERED: ADDE30CA PO (06:06)
[2017-04-09] MEDS ORDERED: CLEO300C2 PO (06:36)
== END 2017-04-09 06:46 | disposition home or self-care (01) ==
LOC: M ED 06:24
DX: K03.9 Disease of hard tissues of teeth, unspecified (principal); G50.1 Atypical facial pain; K08.9 Disorder of teeth and supporting structures, unspecified; F31.9 Bipolar disorder, unspecified; F17.200 Nicotine dependence, unspecified, uncomplicated; Z79.899 Other long term (current) drug therapy

== ENCOUNTER 2017-04-15 14:52 | Emergency (ER) | payer OTHER ==
[~2017-04-15] VITALS: Ht 188 cm; Wt 77.1 kg
[2017-04-15 14:52] VITALS: BP 126/69
[~2017-04-15 14:52] MED LIST changes: +CLEO300C2 PO
[2017-04-15] MEDS ORDERED: IBUP600T26 PO (15:02)
[2017-04-15] MEDS ORDERED: AMBI10TA PO (15:02)
[2017-04-15] MEDS ORDERED: NORCO, ANEXSIA 5/325MG TABLET (HYDROcodone/ACETAMINOPHEN) PO ONE (15:45)
[2017-04-15] MEDS ORDERED: NAPROXEN 250 MG TAB PO ONE (15:45)
--- NOTE | 2017-04-15 15:45 | ED PDOC ---
Post-Departure Follow-Up Patient presents to the ED for evaluation of dental pain that has been ongoing. He states he was seen in our ED, a couple of weeks ago, for the same. He was to follow up with Dr Reeves, in [place], but needs anesthesia for dental extractions and cannot find a ride for the procedure. He, essentially, has not followed up, since his last ED visit. The remainder of his H&P and ROS are as noted on the T-sheet. There isn't any obvious abscess noted, however, the upper gums are very hyperemic and tender to touch so he will be discharged with antibiotic. Discharge plan, including follow-up with a local oral surgeon, pain management, antibiotic therapy and worrisome signs to return to the ED for were all discussed. Questions answered. Patient states understanding to the instructions. NICOLE BRUNO. SHILOH Apr 15, 2017 15:45
[2017-04-15] MEDS ORDERED: NORCOTAB PO (15:47)
[2017-04-15] MEDS ORDERED: NAPR500T PO (15:47)
[2017-04-15] MEDS ORDERED: PENI250T57 PO (15:47)
== END 2017-04-15 15:56 | disposition home or self-care (01) ==
LOC: M ED 15:43
DX: K02.9 Dental caries, unspecified (principal); K05.10 Chronic gingivitis, plaque induced; K08.9 Disorder of teeth and supporting structures, unspecified; F31.9 Bipolar disorder, unspecified; F90.9 Attention-deficit hyperactivity disorder, unspecified type; F63.81 Intermittent explosive disorder; F17.200 Nicotine dependence, unspecified, uncomplicated; Z79.899 Other long term (current) drug therapy

== ENCOUNTER 2017-04-21 18:27 | Emergency (ER) | payer OTHER ==
[~2017-04-21] VITALS: Ht 188 cm; Wt 76.9 kg
[~2017-04-21 18:27] MED LIST changes: +IBUP600T26 PO; +NAPR500T PO; +PENI250T57 PO
[2017-04-21 18:28] VITALS: BP 94/71
[2017-04-22] MEDS ORDERED: IBUPOTC PO (02:53)
[2017-04-22] MEDS ORDERED: ADDE5TAB5 PO ×2 (02:56→10:12)
[2017-04-22] MEDS ORDERED: patient comment (06:59)
[2017-04-22] MEDS ORDERED: AMPH10CA PO (10:11)
== END 2017-04-21 20:09 | disposition left against medical advice (07) ==
LOC: M ED 19:54
DX: R51 Headache (principal); Z53.21 Procedure and treatment not carried out due to patient leaving prior to being seen by health care provider

== ENCOUNTER 2017-04-22 00:56 | Inpatient (IN) | payer OTHER ==
[~2017-04-22] VITALS: Ht 188 cm; Wt 79.8 kg
[2017-04-22 02:43] LABS: MEAN CORPUSCULAR HEMOGLOBIN 30.3 pg (27.0-33.0); MEAN CORPUSCULAR HGB CONC 34.3 g/dl (32.0-36.5); MEAN CORPUSCULAR VOLUME 88.3 fl (80.0-96.0); WHITE BLOOD COUNT 9.7 K/mm3 (4.0-10.0)
[2017-04-22] MEDS ORDERED: MAALOX 30 ML SUSP *UDC PO PRN (02:45)
[2017-04-22] MEDS ORDERED: traZODone 50 MG TAB PO PRN (02:45)
[2017-04-22] MEDS ORDERED: MOM 30ML SUSPENSION UDC PO PRN (02:45)
[2017-04-22] MEDS ORDERED: IBUPOTC PO (02:53)
[2017-04-22] MEDS ORDERED: ADDE5TAB5 PO ×2 (02:56→10:12)
[2017-04-22 03:11] LABS: METHADONE URINE NEGATIVE (NEGATIVE)
[2017-04-22 03:20] LABS: ALBUMIN/GLOBULIN RATIO 1.48 (1.00-1.93); ALKALINE PHOSPHATASE 82 U/L (45-117); ALT/SGPT 19 U/L (12-78); ANION GAP 6 MEQ/L (8-16); AST/SGOT 16 U/L (15-37); BILIRUBIN,DIRECT 0.3 MG/DL (0.0-0.2); BILIRUBIN,TOTAL 1.2 MG/DL (0.2-1.0); BLOOD UREA NITROGEN 11 MG/DL (7-18); CALCIUM LEVEL 9.1 MG/DL (8.5-10.1); CARBON DIOXIDE LEVEL 31 MEQ/L (21-32); CHLORIDE LEVEL 105 MEQ/L (98-107); CREATININE FOR GFR 1.14 MG/DL (0.70-1.30); GLOMERULAR FILTRATION RATE > 60.0 (>60); GLUCOSE, FASTING 78 MG/DL (70-105); POTASSIUM SERUM 3.5 MEQ/L (3.5-5.1); SODIUM LEVEL 142 MEQ/L (136-145); TOTAL PROTEIN 6.7 GM/DL (6.4-8.2)
[2017-04-22 05:05] VITALS: BP 130/79
[2017-04-22] MEDS ORDERED: patient comment (06:59)
[2017-04-22] MEDS ORDERED: AMPH10CA PO (10:11)
--- NOTE | 2017-04-22 10:16 | HPEPDOC ---
Medical History and Physical Date of Admission Apr 22, 2017 at 03:01 History and Physical PCP: Lea Arroyo NP ATTENDING: Dr. Marciano Castellanos HPI: 26yoM admitted to [facility] for unspecified depressive disorder, being medically examined today. Pt declines too participate with history or exam. History is taken from chart. PMHx: Depression/anxiety Mood disorder ADHD Impulse control disorder Polysubstance use Insomnia PSHX: Tonsillectomy SOCHX: Resides in: [place] Marital Status: Single Kids: None Employment: Unemployed Tobacco use: Smoker ETOH: Denies Illicit Drugs: History of marijuana and crack, cocaine IV Drug Use: Denies Tattoos done unprofessionally: Denies FAMHX: Mother: Alive, unknown Father: Alive, unknown Siblings: Alive, well Children: None Unexpected deaths due to medical reasons: None. ROS: Patient declines to provide history PE: Patient declines to participate with exam. EKG: Pending A&P: 26yoM admitted to [facility] for unspecified depressive disorder 1. Psych. Plan per Psychiatry. EKG on file. 2. Nicotine dependence. Patch available. 3. Follow up. No Primary Care Provider. Will attempt to establish PCP on discharge. 4. History of Substance use. Per psychiatry Vital Signs Vital Signs Date Time Temp Pulse Resp B/P (MAP) Pulse Ox O2 Delivery O2 Flow Rate FiO2 04/22/17 05:05 97.3 69 22 130/79 (96) 99 Room Air Laboratory Data Labs 24H Laboratory Tests 2 04/22/17 02:34: Anion Gap 6L, Glomerular Filtration Rate > 60.0, Calcium Level 9.1, Aspartate Amino Transf (AST/SGOT) 16, Alanine Aminotransferase (ALT/SGPT) 19, Alkaline Phosphatase 82, Total Bilirubin 1.2H, Direct Bilirubin 0.3H, Total Protein 6.7, Albumin 4.0, Albumin/Globulin Ratio 1.48, Thyroid Stimulating Hormone (TSH) 3.050, Salicylates Level < 1.7L, Acetaminophen Level < 2.0L, Ethyl Alcohol Level < 0.003 04/22/17 02:39: Urine Amphetamines Screen NEGATIVE, Urine Benzodiazepines Screen NEGATIVE, Urine Opiates Screen NEGATIVE, Urine Methadone Screen NEGATIVE, Urine Barbiturates Screen NEGATIVE, Urine Phencyclidine Screen NEGATIVE, Urine Cocaine Metabolite Screen POSITIVEH, Urine Cannabinoids Screen POSITIVEH CBC/BMP Laboratory Tests 04/22/17 02:34 Red Blood Count 5.20, Mean Corpuscular Volume 88.3, Mean Corpuscular Hemoglobin 30.3, Mean Corpuscular Hemoglobin Concent 34.3, Red Cell Distribution Width 13.0 Home Medications Scheduled (Amphetamine/Dextroampheta 10 mg) 1 Cap Cap, 1 CAP PO DAILY for . Amphetamine/Dextroamphetamine (Adderall Xr 30 mg) 1 Cap Cap, 1 CAP PO QAM for . Paroxetine Hydrochloride (Paxil) 30 Mg Tab, 30 MG PO QHS Quetiapine Fumerate (Seroquel) 200 Mg Tab, 200 MG PO QHS Scheduled PRN Ibuprofen (Ibuprofen) 200 Mg Tab, 600 MG PO Q6H PRN for PAIN Zolpidem Tartrate (Ambien) 10 Mg Tab, 10 MG PO QHS PRN for SLEEP Allergies Coded Allergies: No Known Drug Allergy (Verified Allergy, Unknown, 04/02/17) Sharon Moreland Apr 22, 2017 10:16
[2017-04-22] MEDS ORDERED: METHADONE 10 MG TAB (S0109) PO ONE (14:00)
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
[2017-04-22] MEDS ORDERED: METHADONE 10 MG TAB (S0109) PO STA (14:20)
[2017-04-22] MEDS: GABAPENTIN 300 MG CAP PO SCH ×2 (16:00→21:40)
[2017-04-22] MEDS: PARoxetine 12.5 MG **CR** TAB PO SCH (16:23)
[2017-04-22 18:00] VITALS: BP 112/60
[2017-04-22] MEDS ORDERED: QUEtiapine FUMARATE 100 MG TAB PO SCH (21:00)
[2017-04-22] MEDS: METHADONE 10 MG TAB (S0109) PO SCH (21:40)
[2017-04-22] MEDS: QUEtiapine FUMARATE 100 MG TAB PO SCH (21:40)
[2017-04-23 06:47] VITALS: BP 141/72
[2017-04-23] MEDS: PARoxetine 12.5 MG **CR** TAB PO SCH (09:00)
[2017-04-23] MEDS: GABAPENTIN 300 MG CAP PO SCH ×3 (09:56→20:49)
[2017-04-23] MEDS: METHADONE 10 MG TAB (S0109) PO SCH ×2 (10:01→20:51)
--- NOTE | 2017-04-23 14:29 | MHIPNPDOC ---
[facility] Progress Note Progress Note DATE OF SERVICE: 04/23/17 HISTORY: day 2 of admission VITAL SIGNS: See below. NEW TEST RESULTS: na CURRENT MEDICATIONS: See below. MENTAL STATUS EXAMINATION: Patient is a 26-year old male, who is in bed most of the day, wearing hospital attire, does not want to discuss his future plans but is willing to go to rehab. Speech: Is spontaneous Language skills are intact Thought processes including: loosely organized. Thought content: appropriate.. Abstract reasoning, and computation: concrete. Description of associations: good. Description of abnormal or psychotic thoughts: no psychotic symptoms illicited, pt denies SI. Judgment: limited Insight:limited. Orientation: oriented to person, place and situation. easily reoriented to day and time. Recent and remote memory: intact Attention span and concentration:limited Fund of knowledge: impaired Mood: dysphoric Affect:congruent. DIAGNOSES: Depression/anxiety substance induced Mood disorder bipolar disorder by history, r/o substance induced ADHD by history Impulse control disorder Polysubstance use Insomnia ASSESSMENT:pt has been in [facility] in the past. he may be able to return to a residence after inpatient substance abuse treatment. We have made referrals on his behalf for inpt treatment. He is sleeping most of the day. No group participation. He was observed ambulating in he hallway once today. He has not reported any side effects with methadone. he appears to be tolerating this well. he is taking medications as prescribed. No behavior challenges reported. MANAGEMENT PLAN: continue methadone detox therapy. Encourage good po and fluid intake. monitor VS which have been stable. Dental concerns will be deferred to outpatient status. No pain meds other than tylenol and ibuprofen will be appropriate in this setting as we prepare him for drug rehab. TIME SPENT: 15 minutes. Vital Signs Vital Signs Date Time Temp Pulse Resp B/P (MAP) Pulse Ox O2 Delivery O2 Flow Rate FiO2 04/23/17 10:01 18 04/23/17 06:47 96.7 52 141/72 (95) 04/22/17 05:05 99 Room Air Current Medications Current Medications Acetaminophen (Tylenol Tab) 650 mg Q6HP PRN PO HEADACHE or DISCOMFORT; Start at 02:45; Stop 05/22/17 at 02:44 Al Hydrox/Mg Hydrox/Simethicone (Mylanta) 30 ml Q4HP PRN PO HEARTBURN/ INDIGESTION; Start 04/22/17 at 02:45; Stop 05/22/17 at 02:44 Gabapentin (Neurontin) 300 mg TID PO Last administered on 04/23/17 09:56; Start 04/22/17 at 16:00; Stop 05/22/17 at 15:59 Home Med (Med Rec Complete!) ASDIRECTED XX ; Start 04/22/17 at 03:00; Stop at 03:01; Status DC Magnesium Hydroxide (Milk Of Magnesia) 30 ml DAILYPRN PRN PO CONSTIPATION; Start 04/22/17 at 02:45; Stop 05/22/17 at 02:44 Methadone HCl (Dolophine) 5 mg BID PO ; Start 04/25/17 at 21:00; Stop 04/26/17 at 10:00 Methadone HCl (Dolophine) 10 mg BID PO ; Start 04/23/17 at 21:00; Stop 04/25/17 at 10:00 Methadone HCl (Dolophine) 20 mg BID PO Last administered on 04/23/17 10:01; Start 04/22/17 at 21:00; Stop 04/23/17 at 11:00; Status DC Methadone HCl (Dolophine) 20 mg STAT STAT PO Last administered on 04/22/17 14 :33; Start 04/22/17 at 14:20; Stop 04/22/17 at 14:24; Status DC Paroxetine HCl (PAXil CR) 37.5 mg QAM PO Last administered on 04/22/17 16:23; Start 04/22/17 at 09:00; Stop 05/22/17 at 08:59 Quetiapine Fumarate (SEROquel) 100 mg QHS PO ; Start 04/22/17 at 21:00; Stop at 21:00; Status DC Quetiapine Fumarate (SEROquel) 200 mg QHS PO Last administered on 04/22/17 21: 40; Start 04/22/17 at 21:00; Stop 05/22/17 at 20:59 Trazodone HCl (Desyrel) 50 mg QHSP PRN PO INSOMNIA; Start 04/22/17 at 02:45; Stop 05/22/17 at 02:44; Status Cancel Allergies Coded Allergies: No Known Drug Allergy (Verified Allergy, Unknown, 04/02/17) Lali Eli Apr 23, 2017 14:29
[2017-04-23 18:00] VITALS: BP 123/58
[2017-04-23] MEDS: QUEtiapine FUMARATE 100 MG TAB PO SCH (20:49)
[2017-04-24 06:40] VITALS: BP 112/59
[2017-04-24 06:41] VITALS: BP 112/57
[2017-04-24] MEDS: ACETAMINOPHEN TAB 650MG DOSE (2X325MG) PO PRN ×2 (08:06→17:23)
[2017-04-24] MEDS: PARoxetine 12.5 MG **CR** TAB PO SCH (08:06)
[2017-04-24] MEDS: GABAPENTIN 300 MG CAP PO SCH ×3 (08:06→20:57)
[2017-04-24] MEDS: METHADONE 10 MG TAB (S0109) PO SCH ×2 (08:10→20:58)
[2017-04-24] MEDS: NAPROXEN 250 MG TAB PO SCH ×2 (10:39→20:57)
[2017-04-24 18:16] VITALS: BP 137/68
[2017-04-24] MEDS: QUEtiapine FUMARATE 100 MG TAB PO SCH (21:36)
[2017-04-25 06:30] VITALS: BP 131/68
--- NOTE | 2017-04-25 07:44 | IPN ---
DATE OF SERVICE: 04/24/2017 SUBJECTIVE: "I maybe need to take Adderall." OBJECTIVE: Patient was irritable and impulsive early in the morning demanding to go to the emergency room (ER) because of tooth pain. Naproxen 500 mg was prescribed and was effective, later on. Patient continues hyperactive showing signs of poor attention. Patient has very little insight into his chemical dependency. No evidence of psychotic symptoms. No auditory or visual hallucinations or delusions. MENTAL STATUS EXAMINATION: Patient is dressed in [facility]. Patient is cooperative. Speech is somewhat pressured. Mood is depressed and anxious. Affect is restricted. No evidence of delusions or hallucinations. Memory, attention and concentration are fair. Patient is able to contract for safety during his hospitalization. Insight and judgment are limited. ASSESSMENT: 1. Depression. 2. Suicidal ideation. 3. Substance abuse. PLAN: 1. Continue with methadone 10 mg by mouth twice a day. 2. Continue with Seroquel 200 mg by mouth nightly. 3. Continue with Paxil 37.5 mg by mouth every morning. 4. Continue with Neurontin 300 mg by mouth three times a day. 5. Continue medication management, individual and group therapy.
[2017-04-25] MEDS: NAPROXEN 250 MG TAB PO SCH ×2 (09:10→21:04)
[2017-04-25] MEDS: PARoxetine 12.5 MG **CR** TAB PO SCH (09:11)
[2017-04-25] MEDS: METHADONE 10 MG TAB (S0109) PO SCH (09:11)
[2017-04-25] MEDS: GABAPENTIN 300 MG CAP PO SCH ×3 (09:11→21:04)
[2017-04-25] MEDS: ACETAMINOPHEN TAB 650MG DOSE (2X325MG) PO PRN (15:34)
[2017-04-25 18:00] VITALS: BP 130/72
[2017-04-25] MEDS: METHADONE 5 MG TAB (S0109) PO SCH (21:03)
[2017-04-25] MEDS: QUEtiapine FUMARATE 100 MG TAB PO SCH (21:04)
[2017-04-26] MEDS: NAPROXEN 250 MG TAB PO SCH ×2 (08:29→20:02)
[2017-04-26] MEDS: PARoxetine 12.5 MG **CR** TAB PO SCH (08:29)
[2017-04-26] MEDS: METHADONE 5 MG TAB (S0109) PO SCH (08:29)
[2017-04-26] MEDS: GABAPENTIN 300 MG CAP PO SCH ×3 (08:29→20:02)
[2017-04-26] MEDS: ACETAMINOPHEN TAB 650MG DOSE (2X325MG) PO PRN ×2 (12:08→19:20)
--- NOTE | 2017-04-26 15:26 | MHIPNPDOC ---
[facility] Progress Note Progress Note DATE OF SERVICE: 04/26/17 HISTORY: day 5 of admission. Admitted after contemplating suicide with heroin. VITAL SIGNS: See below. NEW TEST RESULTS: na CURRENT MEDICATIONS: See below. MENTAL STATUS EXAMINATION: Patient is a 26-year old male, who is thin, lying in bed during group time. Tells advertising copy writer it was pointless for him to be put on methadone, then said it help his tooth pain. Speech: Is spontaneous Language skills are intact Thought processes including: linear, minimizes addiction problems. Thought content: wants Adderall. Abstract reasoning, and computation: concrete. Description of associations: good. Description of abnormal or psychotic thoughts: denies SI and HI. No evidence of psychosis. Judgment: poor Insight: poor Orientation: well oriented Recent and remote memory: did not recall advertising copy writer even though we spoke 3 different times since his admission and today. Attention span and concentration: poor, reports racing thoughts and states he needs Adderall. Fund of knowledge: limited due to addiction Mood: dysphoric. Affect: irritable, complaining, rude. DIAGNOSES: Depression/anxiety substance induced Mood disorder bipolar disorder by history, r/o substance induced ADHD by history Impulse control disorder Polysubstance use Insomnia ASSESSMENT:pt not participating in milieu or therapeutic programming. Does not want to attend inpatient rehab. States he can satisfy the [facility] sanction by going to outpatient drug treatment. States he will go to [facility]. Told they do not offer methadone there. He started complaining about methadone because it helped his tooth pain but currently he has no methadone prescribed as he has completed the drug detox. I apologized for not being able to prescribe him pain medication and he said, "it doesn't matter because I'm going right back out to get Vicodin . I'm having racing thoughts because I don't have the rest of my medication. I need Adderall.". Pt not employed or going to school. Offered him Strattera and he stated it makes him suicidal. Told him under the circumstances I would not order Adderall for him as he has a serious addiction problem. He replied not to worry, "my doctor that knows me better than you do will prescribe it." MANAGEMENT PLAN: we will discharge him tomorrow with a plan that he can go to the [facility] in [place] and do his outpatient treatment in [place]. TIME SPENT: 15 minutes. Vital Signs Vital Signs Date Time Temp Pulse Resp B/P (MAP) Pulse Ox O2 Delivery O2 Flow Rate FiO2 04/26/17 08:29 16 04/26/17 07:14 98.6 100 04/25/17 18:00 130/72 (91) 04/25/17 09:11 Room Air 04/22/17 05:05 99 Current Medications Current Medications Acetaminophen (Tylenol Tab) 650 mg Q6HP PRN PO HEADACHE or DISCOMFORT Last administered on 04/26/17 12:08; Start 04/22/17 at 02:45; Stop 05/22/17 at 02:44 Al Hydrox/Mg Hydrox/Simethicone (Mylanta) 30 ml Q4HP PRN PO HEARTBURN/ INDIGESTION; Start 04/22/17 at 02:45; Stop 05/22/17 at 02:44 Gabapentin (Neurontin) 300 mg TID PO Last administered on 04/26/17 08:29; Start 04/22/17 at 16:00; Stop 05/22/17 at 15:59 Home Med (Med Rec Complete!) ASDIRECTED XX ; Start 04/22/17 at 03:00; Stop at 03:01; Status DC Magnesium Hydroxide (Milk Of Magnesia) 30 ml DAILYPRN PRN PO CONSTIPATION; Start 04/22/17 at 02:45; Stop 05/22/17 at 02:44 Methadone HCl (Dolophine) 5 mg BID PO Last administered on 04/26/17 08:29; Start 04/25/17 at 21:00; Stop 04/26/17 at 10:00; Status DC Methadone HCl (Dolophine) 10 mg BID PO Last administered on 04/25/17 09:11; Start 04/23/17 at 21:00; Stop 04/25/17 at 10:00; Status DC Methadone HCl (Dolophine) 20 mg BID PO Last administered on 04/23/17 10:01; Start 04/22/17 at 21:00; Stop 04/23/17 at 11:00; Status DC Methadone HCl (Dolophine) 20 mg STAT STAT PO Last administered on 04/22/17 14 :33; Start 04/22/17 at 14:20; Stop 04/22/17 at 14:24; Status DC Naproxen (Naprosyn) 500 mg BID PO Last administered on 04/26/17 08:29; Start 04/24/17 at 09:00; Stop 05/24/17 at 08:59 Paroxetine HCl (PAXil CR) 37.5 mg QAM PO Last administered on 04/26/17 08:29; Start 04/22/17 at 09:00; Stop 05/22/17 at 08:59 Quetiapine Fumarate (SEROquel) 100 mg QHS PO ; Start 04/22/17 at 21:00; Stop at 21:00; Status DC Quetiapine Fumarate (SEROquel) 200 mg QHS PO Last administered on 04/25/17 21: 04; Start 04/22/17 at 21:00; Stop 05/22/17 at 20:59 Trazodone HCl (Desyrel) 50 mg QHSP PRN PO INSOMNIA; Start 04/22/17 at 02:45; Stop 05/22/17 at 02:44; Status Cancel Allergies Coded Allergies: No Known Drug Allergy (Verified Allergy, Unknown, 04/02/17) Lali Eli Apr 26, 2017 15:26
[2017-04-26] MEDS: QUEtiapine FUMARATE 100 MG TAB PO SCH (20:02)
[2017-04-26] MEDS ORDERED: ANBESOL GEL 10% TOP PRN (22:15)
[2017-04-26] MEDS ORDERED: ACETAMINOPHEN 500 MG TAB PO PRN (22:15)
[2017-04-27 06:00] VITALS: BP 116/63
[2017-04-27] MEDS: GABAPENTIN 300 MG CAP PO SCH ×2 (08:33→15:30)
[2017-04-27] MEDS: PARoxetine 12.5 MG **CR** TAB PO SCH (08:33)
[2017-04-27] MEDS: NAPROXEN 250 MG TAB PO SCH (08:33)
--- NOTE | 2017-04-27 10:44 | MHIPNPDOC ---
[facility] Progress Note Progress Note DATE OF SERVICE: 04/27/17 HISTORY: day6 of admission, using drugs and became suicidal. VITAL SIGNS: See below. NEW TEST RESULTS: na CURRENT MEDICATIONS: See below. MENTAL STATUS EXAMINATION: Patient is a 26-year old male, who is wearing hospital attire, tall and thin, poor eye contact. Speech: Is curses frequently, spontaneous Language skills are poor Thought processes including: linear Thought content: appropriate Abstract reasoning, and computation: fair Description of associations: good. Description of abnormal or psychotic thoughts: denies SI and HI. no psychotic symptoms noted. No delusions. No commitment to stop abusing cocaine. Judgment: limited Insight: poor. Orientation: oriented to person place, situation and day and time Recent and remote memory: intact Attention span and concentration: poor. Fund of knowledge: full. Mood: dysphoric. Affect: irritable. DIAGNOSES: Depression/anxiety substance induced Mood disorder bipolar disorder by history, r/o substance induced ADHD by history Impulse control disorder Polysubstance use Insomnia ASSESSMENT:pt states he will go to [facility] tomorrow a.m. and enroll in a treatment program. then he will be eligible for assistance from [facility]. We will plan discharge for early tomorrow. MANAGEMENT PLAN: Pt is to be kept out of room to attend groups, continue to monitor, continue meds as ordered. TIME SPENT: 15 minutes. Vital Signs Vital Signs Date Time Temp Pulse Resp B/P (MAP) Pulse Ox O2 Delivery O2 Flow Rate FiO2 04/27/17 06:00 98.2 55 16 116/63 (80) 04/25/17 09:11 Room Air 04/22/17 05:05 99 Current Medications Current Medications Acetaminophen (Tylenol Tab) 650 mg Q6HP PRN PO HEADACHE or DISCOMFORT Last administered on 04/26/17t 19:20; Start 04/22/17 at 02:45; Stop 04/26/17 at 22:19 ; Status DC Acetaminophen (Tylenol Tab) 1,000 mg Q6HP PRN PO PAIN / FEVER; Start 04/26/17 at 22:15; Stop 05/26/17 at 22:14 Al Hydrox/Mg Hydrox/Simethicone (Mylanta) 30 ml Q4HP PRN PO HEARTBURN/ INDIGESTION; Start 04/22/17 at 02:45; Stop 05/22/17 at 02:44 Benzocaine (Anbesol Gel) Apply to tooth pain site Q6HP PRN TOP PAIN; Start at 22:15; Stop 05/26/17 at 22:14 Gabapentin (Neurontin) 300 mg TID PO Last administered on 04/27/17 08:33; Start 04/22/17 at 16:00; Stop 05/22/17 at 15:59 Home Med (Med Rec Complete!) ASDIRECTED XX ; Start 04/22/17 at 03:00; Stop at 03:01; Status DC Magnesium Hydroxide (Milk Of Magnesia) 30 ml DAILYPRN PRN PO CONSTIPATION; Start 04/22/17 at 02:45; Stop 05/22/17 at 02:44 Methadone HCl (Dolophine) 5 mg BID PO Last administered on 04/26/17 08:29; Start 04/25/17 at 21:00; Stop 04/26/17 at 10:00; Status DC Methadone HCl (Dolophine) 10 mg BID PO Last administered on 04/25/17 09:11; Start 04/23/17 at 21:00; Stop 04/25/17 at 10:00; Status DC Methadone HCl (Dolophine) 20 mg BID PO Last administered on 04/23/17 10:01; Start 04/22/17 at 21:00; Stop 04/23/17 at 11:00; Status DC Methadone HCl (Dolophine) 20 mg STAT STAT PO Last administered on 04/22/17 14 :33; Start 04/22/17 at 14:20; Stop 04/22/17 at 14:24; Status DC Naproxen (Naprosyn) 500 mg BID PO Last administered on 04/27/17 08:33; Start 04/24/17 at 09:00; Stop 05/24/17 at 08:59 Paroxetine HCl (PAXil CR) 37.5 mg QAM PO Last administered on 04/27/17 08:33; Start 04/22/17 at 09:00; Stop 05/22/17 at 08:59 Quetiapine Fumarate (SEROquel) 100 mg QHS PO ; Start 04/22/17 at 21:00; Stop at 21:00; Status DC Quetiapine Fumarate (SEROquel) 200 mg QHS PO Last administered on 04/26/17t 20: 02; Start 04/22/17 at 21:00; Stop 05/22/17 at 20:59 Trazodone HCl (Desyrel) 50 mg QHSP PRN PO INSOMNIA; Start 04/22/17 at 02:45; Stop 05/22/17 at 02:44; Status Cancel Allergies Coded Allergies: No Known Drug Allergy (Verified Allergy, Unknown, 04/02/17) Lali Eli Apr 27, 2017 10:44
[2017-04-27] MEDS ORDERED: PARO12.5 PO (13:36)
--- NOTE | 2017-04-27 13:47 | MHDSPDOC ---
[facility] Discharge Summary Discharge Summary DATE OF ADMISSION: Apr 22, 2017 at 03:01 DATE OF DISCHARGE: April 27, 2017 DISCHARGE DIAGNOSES: Depression/anxiety substance induced Mood disorder bipolar disorder by history, r/o substance induced ADHD by history Impulse control disorder Polysubstance use Insomnia REASON FOR ADMISSION: SI while under the influence of cocaine, contemplating overdosing with heroin. CONSULTANTS INVOLVED: na TREATMENT AND PROGRESS ON THE UNIT :pt safely detox from cocaine with the help of methadone. He did well on a tapered dose over 5 days. He remained irritable and in pain due to dental concerns the entire admission. He states he is being sanctioned by DSS for failure to complete substance abuse treatment. He is refusing to attend inpatient Rehab. States he has done it before but it never works out for him. He admits he has gone to rehab to please females but not to get himself clean. He appears to have problems with co-dependency issues when involved in relationships. Pt was restarted on Paxil CR. Gabapentin and Seroquel. HOSPITAL COURSE: pt c/o withdrawal symptoms shortly after admission and was started on methadone treatment. Once the methadone treatment was over he complained about it stating, "I don't know why you even gave it to me. I'm going right out to get Vicodin as soon as I leave here for my teeth pain." He states he has about 6 months of dental work that needs to be done. He also reported having racing thoughts and stated he has an outpatient provider who gives him Adderall. DISCHARGE ASSESSMENT: Pt would benefit from a 28-30 day inpatient treatment stay followed by supervised residential house setting but he will not consent to this. He states he can attend [facility] addictions and stay with a friend. Pt appears to have a rather anxious and hostile affect during most discussions. He has tendencies that cause one to suspect antisocial personality and/or borderline personality disorder. He has not goals for the future that he can identify. When he is asked about family relationships he speaks very negatively about everyone. He does the same about some of his friends. He is critical of providers and rude towards other staff and peers. He seems to have very little self-respect and self-esteem. He was made to attend groups today as he has only been laying in bed since admission refusing to participate in programming. Since he would not consent to the initial discharge plan which called for residing at the [facility], he is expected to attend programming while his plan is re-worked. pt reported he had a place to stay with a female friend and requested to be discharged today. he states the friend will take him to [facility] at 0800 tomorrow. [facility] records did not show any controlled substance record for the patient. MENTAL STATUS EXAMINATION ON DISCHARGE: Patient is a 26-year old male, who is tall, thin, very short hair, irritable, poor eye contact. Speech is spontaneous Language skills are intact, uses swear words for everyday language. Thought processes including: goal directed Thought content: appropriate Abstract reasoning, and computation: concrete Description of associations: good Description of abnormal or psychotic thoughts: no psychosis, no longer having suicidal or homicidal ideation. Judgment: limited Insight: poor Orientation to person, place and time. Recent and remote memory:intact Attention span and concentration: poor. Fund of knowledge: impaired by addiction Mood: dysphoric Affect: congruent MEDICATIONS ON DISCHARGE: - paxil cr for mood - seroquel for mood - gabapentin for mood regulation PLAN/FOLLOWUP ARRANGEMENTS: [facility]. The amount of time spent in the coordination of care for this patient was approximately 30 minutes. Vital Signs/I&Os Vital Signs Date Time Temp Pulse Resp B/P (MAP) Pulse Ox O2 Delivery O2 Flow Rate FiO2 04/27/17 06:00 98.2 55 16 116/63 (80) 04/25/17 09:11 Room Air 04/22/17 05:05 99 Medications Scheduled Paroxetine (Paroxetine HCl ER) 12.5 Mg Tab, 37.5 MG PO QAM for DEPRESSION for 7 Days, #21 Quetiapine Fumerate (Seroquel) 200 Mg Tab, 200 MG PO QHS, (Reported) Scheduled PRN Ibuprofen (Ibuprofen) 200 Mg Tab, 600 MG PO Q6H PRN for PAIN, (Reported) Allergies Coded Allergies: No Known Drug Allergy (Verified Allergy, Unknown, 04/02/17) Lali Eli Apr 27, 2017 13:47
[2017-04-27] MEDS ORDERED: NEUR300C PO (14:46)
[2017-04-27] MEDS ORDERED: PARO20TA3 PO (14:49)
== END 2017-04-27 16:03 | disposition home or self-care (01) | DRG 754 ==
LOC: M ED 02:52 → M ED INP 03:01 → M PSY 05:06
PROVIDERS: ADMIT Psychiatry & Neurology Psychiatry; ATTEND Psychiatry & Neurology Psychiatry
DX: F32.9 Major depressive disorder, single episode, unspecified (principal); F41.9 Anxiety disorder, unspecified; G47.00 Insomnia, unspecified; F90.9 Attention-deficit hyperactivity disorder, unspecified type; F19.94 Other psychoactive substance use, unspecified with psychoactive substance-induced mood disorder; F63.9 Impulse disorder, unspecified; Z79.899 Other long term (current) drug therapy

== ENCOUNTER 2017-05-01 13:41 | Emergency (ER) | payer OTHER ==
[~2017-05-01] VITALS: Ht 188 cm; Wt 78.9 kg
[~2017-05-01 13:41] MED LIST changes: -ACET-654 PO; +ACET1TAB17 PO; +ADDE1TAB14 PO; -ADDE30CA PO; +ADDE30CA3 PO; -ADDE5TAB5 PO; +AMPH10CA PO; +IBUP-1022 PO; +IBUP1TAB6 PO; -IBUP600T26 PO; -IBUP60TA PO; +IBUPOTC PO; +PARO12.5 PO; +PARO20TA3 PO; +patient comment
[2017-05-01 13:42] VITALS: BP 110/73
[2017-05-01] MEDS ORDERED: TYLE325T5 PO (13:46)
[2017-05-01] MEDS ORDERED: NAPR500T PO (14:24)
[2017-05-01] MEDS ORDERED: PERCTAB2 PO (14:24)
[2017-05-01] MEDS ORDERED: AMOX875T PO (14:24)
[2017-09-11] MEDS ORDERED: ADDE20CA3 PO (04:49)
[2017-09-11] MEDS ORDERED: PARO30TA PO (04:49)
[2017-09-11] MEDS ORDERED: GABA-279 PO (04:49)
== END 2017-05-01 14:41 | disposition home or self-care (01) ==
LOC: M ED 14:12
DX: S02.5XXA Fracture of tooth (traumatic), initial encounter for closed fracture (principal); X58.XXXA Exposure to other specified factors, initial encounter; Y92.9 Unspecified place or not applicable; Y93.9 Activity, unspecified; Y99.9 Unspecified external cause status; K02.9 Dental caries, unspecified; K08.89 Other specified disorders of teeth and supporting structures; F32.9 Major depressive disorder, single episode, unspecified; Z79.899 Other long term (current) drug therapy

== ENCOUNTER 2017-05-07 02:20 | Emergency (ER) | payer MEDICAID ==
[~2017-05-07] VITALS: Ht 188 cm; Wt 77.7 kg
[~2017-05-07 02:20] MED LIST changes: +AMOX875T PO; +PERCTAB2 PO; +TYLE325T5 PO
[2017-05-07] MEDS ORDERED: NEUR300C PO (02:36)
[2017-05-07] MEDS ORDERED: ADDE1TAB14 PO (02:40)
[2017-05-07] MEDS ORDERED: ADDE30CA3 PO (02:40)
[2017-05-07] MEDS ORDERED: AMBI10TA PO (02:41)
[2017-05-07 03:21] LABS: MEAN CORPUSCULAR HEMOGLOBIN 30.5 pg (27.0-33.0); MEAN CORPUSCULAR HGB CONC 34.8 g/dl (32.0-36.5); MEAN CORPUSCULAR VOLUME 87.6 fl (80.0-96.0); WHITE BLOOD COUNT 10.9 K/mm3 (4.0-10.0)
[2017-05-07 03:50] LABS: ALBUMIN/GLOBULIN RATIO 1.33 (1.00-1.93); ALKALINE PHOSPHATASE 92 U/L (45-117); ALT/SGPT 19 U/L (12-78); ANION GAP 6 MEQ/L (8-16); AST/SGOT 20 U/L (15-37); BILIRUBIN,DIRECT 0.2 MG/DL (0.0-0.2); BILIRUBIN,TOTAL 0.8 MG/DL (0.2-1.0); BLOOD UREA NITROGEN 16 MG/DL (7-18); CALCIUM LEVEL 8.9 MG/DL (8.5-10.1); CARBON DIOXIDE LEVEL 32 MEQ/L (21-32); CHLORIDE LEVEL 105 MEQ/L (98-107); CREATININE FOR GFR 0.98 MG/DL (0.70-1.30); GLOMERULAR FILTRATION RATE > 60.0 (>60); GLUCOSE, FASTING 86 MG/DL (70-105); POTASSIUM SERUM 4.1 MEQ/L (3.5-5.1); SODIUM LEVEL 143 MEQ/L (136-145)
[2017-05-07 08:38] LABS: METHADONE URINE NEGATIVE (NEGATIVE)
[2017-05-07 10:02] VITALS: BP 117/70
[2017-09-11] MEDS ORDERED: GABA-279 PO (04:49)
[2017-09-11] MEDS ORDERED: ADDE20CA3 PO (04:49)
[2017-09-11] MEDS ORDERED: PARO30TA PO (04:49)
== END 2017-05-07 10:03 | disposition home or self-care (01) ==
LOC: M ED 02:20
DX: F19.10 Other psychoactive substance abuse, uncomplicated (principal); F43.0 Acute stress reaction; F32.9 Major depressive disorder, single episode, unspecified; F17.200 Nicotine dependence, unspecified, uncomplicated; Z79.899 Other long term (current) drug therapy

== ENCOUNTER 2017-06-17 20:57 | Emergency (ER) | payer MEDICAID ==
[~2017-06-17] VITALS: Ht 185.4 cm; Wt 80.9 kg
[2017-06-17 21:01] VITALS: BP 101/67
[2017-06-17] MEDS ORDERED: PENI500T PO (21:39)
[2017-06-17] MEDS ORDERED: NAPR500T3 PO (21:39)
[2017-06-17] MEDS ORDERED: NAPROXEN 250 MG TAB PO ONE (21:45)
[2017-06-17] MEDS ORDERED: PENICILLIN V POTASSIUM 500 MG TAB PO ONE (21:45)
[2017-09-11] MEDS ORDERED: ADDE20CA3 PO (04:49)
[2017-09-11] MEDS ORDERED: GABA-279 PO (04:49)
[2017-09-11] MEDS ORDERED: PARO30TA PO (04:49)
== END 2017-06-17 21:48 | disposition home or self-care (01) ==
LOC: M ED 20:57
DX: K02.9 Dental caries, unspecified (principal); K08.89 Other specified disorders of teeth and supporting structures; F17.200 Nicotine dependence, unspecified, uncomplicated; Z79.899 Other long term (current) drug therapy

== ENCOUNTER → 2017-06-21 | Outpatient (CLI) | payer MEDICAID ==
[~2017-06-21] MED LIST changes: +ADDE20CA3 PO; +GABA-279 PO; +NAPR500T3 PO; +PARO30TA PO; +PENI500T PO
== END ==
LOC: M OUTALCOH 09:47
PROVIDERS: ATTEND Psychiatry & Neurology Psychiatry
DX: F14.20 Cocaine dependence, uncomplicated (principal); F12.20 Cannabis dependence, uncomplicated

== ENCOUNTER → 2017-07-08 | Outpatient (RCR) | payer MEDICAID | LOC: M OUTALCOH 15:58 | PROVIDERS: ATTEND Psychiatry & Neurology Psychiatry | DX: F14.20 Cocaine dependence, uncomplicated (principal); F12.20 Cannabis dependence, uncomplicated ==

== ENCOUNTER 2017-07-22 15:25 | Emergency (ER) | payer MEDICAID ==
[~2017-07-22] VITALS: Ht 185.4 cm; Wt 170.0 kg
[2017-07-22 15:25] VITALS: BP 115/63
[~2017-07-22 15:25] MED LIST changes: -ADDE20CA3 PO; -GABA-279 PO; -PARO30TA PO
[2017-09-11] MEDS ORDERED: ADDE20CA3 PO (04:49)
[2017-09-11] MEDS ORDERED: PARO30TA PO (04:49)
[2017-09-11] MEDS ORDERED: GABA-279 PO (04:49)
[2017-09-17] MEDS ORDERED: PARO20TA3 PO (09:05)
== END 2017-07-22 15:46 | disposition left against medical advice (07) ==
LOC: M ED 15:25
DX: R05 Cough (principal); Z53.21 Procedure and treatment not carried out due to patient leaving prior to being seen by health care provider

== ENCOUNTER → 2017-10-04 | Outpatient (CLI) | payer MEDICAID ==
[~2017-10-04] MED LIST changes: +ADDE20CA3 PO; +GABA-279 PO; +PARO30TA PO
== END ==
LOC: M OUTALCOH 12:59
PROVIDERS: ATTEND Psychiatry & Neurology Psychiatry
DX: Z13.9 Encounter for screening, unspecified (principal); F14.20 Cocaine dependence, uncomplicated; F11.20 Opioid dependence, uncomplicated

== ENCOUNTER 2017-11-06 16:04 | Emergency (ER) | payer MEDICAID | END 2017-11-06 16:07 | disposition left against medical advice (07) | LOC: M ED 16:04 | DX: K08.89 Other specified disorders of teeth and supporting structures (principal); Z53.21 Procedure and treatment not carried out due to patient leaving prior to being seen by health care provider ==

== ENCOUNTER 2017-11-11 13:00 | Outpatient (RCR) | payer MEDICAID | END 2017-12-08 | LOC: M OUTALCOH 11-18 11:00 | DX: F14.20 Cocaine dependence, uncomplicated (principal); F12.20 Cannabis dependence, uncomplicated; Z72.0 Tobacco use ==

== ENCOUNTER 2017-12-09 11:20 | Outpatient (RCR) | payer SELFPAY, MEDICAID | END 2018-01-05 | LOC: M OUTALCOH 11:20 | DX: F14.20 Cocaine dependence, uncomplicated (principal); F12.20 Cannabis dependence, uncomplicated; Z72.0 Tobacco use ==

== ENCOUNTER 2018-01-06 14:17 | Outpatient (RCR) | payer OTHER, MEDICAID | END 2018-02-05 | LOC: M OUTALCOH 01-17 13:00 | DX: F14.20 Cocaine dependence, uncomplicated (principal); F12.20 Cannabis dependence, uncomplicated; Z72.0 Tobacco use | CPT/HCPCS: 90832 ==

== ENCOUNTER 2018-02-07 11:16 | Outpatient (RCR) | payer OTHER | END 2018-03-07 | LOC: M OUTALCOH 02-14 10:00 | DX: F14.20 Cocaine dependence, uncomplicated (principal); Z72.0 Tobacco use; F12.20 Cannabis dependence, uncomplicated ==

== ENCOUNTER 2018-04-03 20:53 | Emergency (ER) | payer OTHER ==
[2018-04-03] MEDS: DERMABOND TOPICAL SKIN ADHESIVE TOP (23:15)
[2018-04-03] MEDS: ADACEL/BOOSTRIX VACCINE (DIPHTH/PERTUSS/ACELL/TETANUS)0.5ML SYR (90715) IM (23:23)
== END 2018-04-03 23:40 | disposition home or self-care (01) ==
LOC: M ED 23:40
DX: S61.312A Laceration without foreign body of right middle finger with damage to nail, initial encounter (principal); W25.XXXA Contact with sharp glass, initial encounter; Y92.090 Kitchen in other non-institutional residence as the place of occurrence of the external cause; F90.9 Attention-deficit hyperactivity disorder, unspecified type; F17.210 Nicotine dependence, cigarettes, uncomplicated; Z79.899 Other long term (current) drug therapy
CPT/HCPCS: 90715

== ENCOUNTER 2018-04-26 13:02 | Emergency (ER) | payer OTHER | END 2018-04-26 14:26 | disposition home or self-care (01) | LOC: M ED 13:02 | DX: L03.113 Cellulitis of right upper limb (principal); Z87.891 Personal history of nicotine dependence; Z79.899 Other long term (current) drug therapy | CPT/HCPCS: 87186 ==

== ENCOUNTER 2018-11-21 08:09 | Emergency (ER) | payer OTHER, SELFPAY ==
[~2018-11-21] VITALS: Ht 188 cm; Wt 81.8 kg
[~2018-11-21 08:09] MED LIST changes: -ACET1TAB17 PO; +ACET1TAB55 PO; +ADDE20CA3; +BACT800T5 PO; +GABA-1171 PO; -GABA-279 PO; -GABA-282 PO; +GABA-843 PO; +NAPR-50 PO; +NAPR-885 PO; -NAPR500T PO; -NAPR500T3 PO; +PARO30TA3 PO
[2018-11-21] MEDS ORDERED: KETOROLAC 30 MG/ML VIAL (J1885) IM ONE (08:30)
--- NOTE | 2018-11-21 09:12 | REP ---
Chest x-ray: Two views. History: Trauma . Comparison study: No comparison . Findings: The lungs are well inflated and free of infiltrate. The pleural angles are sharp. The heart size is normal. Pulmonary vasculature is not increased. No significant bony abnormality is seen. EKG monitoring electrodes are seen overlying the chest. Impression: Negative chest x-ray. Electronically Signed by Jam Dumas MD 11/21/2018 09:04 A
--- NOTE | 2018-11-21 09:23 | REP ---
LUMBAR SPINE SERIES: Five views. HISTORY: Trauma. FINDINGS: Five views of the lumbar spine show preserved vertebral body heights. There is a mild levoconvex curvature on the frontal view. Alignment is otherwise normal. No fracture or collapse is seen. Disc spaces are maintained. There is no evidence of spondylolysis or spondylolisthesis. The visualized sacrum and SI joints are intact. IMPRESSION: Mild levoconvex curvature. No traumatic abnormality noted. Electronically Signed by Jam Dumas MD 11/21/2018 10:21 A
--- NOTE | 2018-11-21 09:24 | REP ---
PELVIS RIGHT HIP: Three views. HISTORY: Trauma. FINDINGS: AP view of the pelvis and AP and frog-leg views right hip demonstrate smooth rounded femoral heads and intact hip joint spaces. No hip fracture is seen. No pelvic or sacral fracture is noted. IMPRESSION: No fracture seen. Electronically Signed by Jam Dumas MD 11/21/2018 10:21 A
[2018-11-21 10:18] VITALS: BP 117/72
== END 2018-11-21 10:46 | disposition home or self-care (01) ==
LOC: M ED 08:09
DX: S70.01XA Contusion of right hip, initial encounter (principal); V03.10XA Pedestrian on foot injured in collision with car, pick-up truck or van in traffic accident, initial encounter; Y92.410 Unspecified street and highway as the place of occurrence of the external cause
CPT/HCPCS: 71046; 72110; 73502; 96372; 99284; J1885

== ENCOUNTER 2019-03-23 07:43 | Emergency (ER) | payer OTHER ==
[~2019-03-23] VITALS: Ht 188 cm; Wt 74.2 kg
[2019-03-23 07:43] VITALS: BP 131/74
[~2019-03-23 07:43] MED LIST changes: -/LAMO10TA PO; +HYDR-3715 PO; +LAMI1TAB7 PO; -NAPR-50 PO; +NAPR-837 PO; -NORCOTAB PO
[2019-03-23] MEDS ORDERED: IBUP-1022 PO (08:22)
== END 2019-03-23 08:37 | disposition home or self-care (01) ==
LOC: M ED 07:43
DX: J02.9 Acute pharyngitis, unspecified (principal); F33.9 Major depressive disorder, recurrent, unspecified; F90.9 Attention-deficit hyperactivity disorder, unspecified type; Z79.899 Other long term (current) drug therapy

== ENCOUNTER → 2021-07-28 | Outpatient (CLI) | payer MEDICAID, OTHER ==
[~2021-07-28] MED LIST changes: -AMPH10CA PO; +AMPH1CAP14 PO; +GABA-282 PO; -GABA-843 PO; -PARO12.5 PO; +PARO12.510 PO; -PARO30TA PO; +PARO30TA65 PO
[2021-07-28 13:36] LABS: BASO # 0.1 10^3/uL (0.0-0.2); BASO % 0.8 % (0.0-1.0); EOS # 0.3 10^3/uL (0.0-0.5); EOS % 4.3 % (0.0-3.0); HEMATOCRIT 48.2 % (42.0-52.0); HEMOGLOBIN 16.9 g/dl (13.5-17.5); LYMPH # 2.7 10^3/uL (1.5-5.0); LYMPH % 34.1 % (24.0-44.0); MEAN CORPUSCULAR HEMOGLOBIN 30.7 pg (27.0-33.0); MEAN CORPUSCULAR HGB CONC 35.1 g/dl (32.0-36.5); MEAN CORPUSCULAR VOLUME 87.5 fl (80.0-96.0); MONO # 0.5 10^3/uL (0.0-0.8); MONO % 6.4 % (2.0-8.0); NEUTROPHILS # 4.2 10^3/uL (1.5-8.5); PLATELET COUNT, AUTOMATED 264 10^3/uL (150-450); RED BLOOD COUNT 5.51 10^6/uL (4.30-6.10); WHITE BLOOD COUNT 7.8 10^3/uL (4.0-10.0)
[2021-07-28 14:11] LABS: ALBUMIN 4.1 GM/DL (3.2-5.2); ALT/SGPT 21 U/L (12-78); BILIRUBIN,TOTAL 1.3 MG/DL (0.2-1.0); BLOOD UREA NITROGEN 16 MG/DL (7-18); CALCIUM LEVEL 9.3 MG/DL (8.5-10.1); CARBON DIOXIDE LEVEL 33 MEQ/L (21-32); CHLORIDE LEVEL 105 MEQ/L (98-107); CREATININE FOR GFR 1.07 MG/DL (0.70-1.30); GLOMERULAR FILTRATION RATE > 60.0 (>60); GLUCOSE, FASTING 83 MG/DL (70-100); POTASSIUM SERUM 4.2 MEQ/L (3.5-5.1); SODIUM LEVEL 140 MEQ/L (136-145)
[2021-07-28 14:29] LABS: HEPATITIS B SURFACE ANTIGEN NEGATIVE (NEGATIVE)
[2021-07-28 14:57] LABS: HEPATITIS B CORE ANTIBODY IGM NEGATIVE (NEGATIVE)
[2021-07-28 14:59] LABS: HEPATITIS A ANTIBODY IGM NEGATIVE (NEGATIVE)
[2021-07-28 15:07] LABS: HEPATITIS C VIRUS ABY INDEX > 11.0 INDEX (<0.8)
[2021-07-28 16:06] LABS: APPEARANCE, URINE HAZY (CLEAR); BILIRUBIN, URINE AUTO NEGATIVE (NEGATIVE); BLOOD, URINE BLOOD NEGATIVE (NEGATIVE); COLOR, URINE YELLOW (YELLOW); GLUCOSE, URINE (UA) AUTO NEGATIVE (NEGATIVE); KETONE, URINE AUTO NEGATIVE (NEGATIVE); LEUKOCYTE ESTERASE, URINE AUTO NEGATIVE (NEGATIVE); NITRITE, URINE AUTO NEGATIVE (NEGATIVE); PROTEIN, URINE AUTO NEGATIVE (NEGATIVE); SPECIFIC GRAVITY URINE AUTO 1.025 (1.002-1.035); UROBILINOGEN, URINE AUTO 0.2 mg/dL (0.0-2.0)
[2021-07-28 16:08] LABS: BACTERIA, URINE AUTO NEGATIVE (NEGATIVE); MUCUS, URINE SMALL (NEGATIVE); RBC, URINE AUTO 0 /HPF (0-3); SQUAMOUS EPITHELIAL CELL UR AU 0 /HPF (0-6); WBC, URINE AUTO 0 /HPF (0-3)
== END ==
LOC: M LAB 12:41
PROVIDERS: ATTEND Physician Assistant Medical
DX: Z02.2 Encounter for examination for admission to residential institution (principal); B18.2 Chronic viral hepatitis C; B16.9 Acute hepatitis B without delta-agent and without hepatic coma; B15.9 Hepatitis A without hepatic coma

== ENCOUNTER 2021-08-26 15:16 | Emergency (ER) | payer MEDICAID ==
[~2021-08-26] VITALS: Ht 185.4 cm; Wt 89.4 kg
--- OUTSIDE RECORDS SUMMARY | 2021-08-26 15:24 | CCD | Continuity of Care Document ---
Author Author Yoan TUCKER Organization Unknown Address [address] [place] [address] [address] [place] [address] Phone [phone] Care Team Providers Care Coat Operator Insulator Name Role Phone JOHN TUCKER AUTM [phone] Social History Type Date Description Comments Sex Unknown Procedures Date Code Description Status 07/23/2021 76238 Office/Outpatient Established Lo w MDM 20-29 Min Completed Assessments Date Code Description Provider 07/23/2021 F32.9 Major depressive disorder, singl e episode, unspecified [facility] 07/23/2021 F90.9 Attention-deficit hyperactivity disorder, unspecified type [facility] 07/23/2021 Z00.8 Encounter for other general exam ination [facility]
--- OUTSIDE RECORDS SUMMARY | 2021-08-26 15:24 | CCD | Continuity of Care Document ---
Author Author Yoan CORREIA M.D. Organization Unknown Address [address] [place] [address] Phone [phone] Problems Active Problems Provider Date Bipolar disorder Lisbeth Hannah NP Onset: 02/27/2019 Social History Type Date Description Comments Sex Unknown Allergies, Adverse Reactions, Alerts Description No Known Drug Allergies Medications Active Medications SIG Qnty Indications Ordering Provide r Date Paroxetine HCL 20mg Tablets 1 by mouth every day 30tabs Marciano Correia M.D. 01/28/2021 History Medications Gabapentin 300mg Capsules 1 tab by mouthpo twice a day x 7 days, then one by mouth daily x 7 days then stop 21caps Marciano Correia M.D. 01/28/2021 - 03/04/2021 Immunizations Description No Information Available Vital Signs Date Vital Result Comment 01/20/2021 9:17am BP Systolic 131 mmHg BP Diastolic 80 mmHg Heart Rate 91 /min Respiratory Rate 20 /min Body Temperature 97.2 F 10/16/2019 8:42am BP Systolic 104 mmHg BP Diastolic 62 mmHg Heart Rate 85 /min Respiratory Rate 18 /min Body Temperature 96.9 F Weight 166.00 lb Results Description No Information Available Procedures Description No Information Available Medical Devices Description No Information Available Encounters Description No Information Available Assessments Description No Information Available Plan of Treatment No Information Available Functional Status Description No Information Available Mental Status Description No Information Available Referrals Description No Information Available
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
--- OUTSIDE RECORDS SUMMARY | 2021-08-26 15:24 | CCD ---
Author Author [facility] Organization [facility] Address Unknown Phone Unavailable Care Team Providers Care Pocket Maker Name Role Phone Eyalchelseypennyjacqueline, Diamond Unavailable PROBLEMS Type Condition ICD9-CM Code [id number] Code Onset Dates Condition S tatus W/U Status Risk SNOMED Code Notes Problem Anxiety F41.9 Active confirmed 95934563 Problem Depression F32.9 Active confirmed 22746649 Problem Attention-deficit hyperactivity disorder, combined type F90.2 Active confirmed 00365462 Problem Intermittent explosive disorder F63.81 Active confi rmed 78611706 Problem Insomnia, unspecified type G47.00 Active confirmed 385260485 Problem Cannabis dependence F12.20 Active confirmed 79630938 ALLERGIES No Known Allergies ENCOUNTERS from 1992 to 2021-08-13 Encounter Location Date Provider Diagnosis [address] [address] Aug, Diamondgrant Camilo IMMUNIZATIONS No Information SOCIAL HISTORY Sex Assigned At : Social History Observation Description Sex Assigned At Unknown REASON FOR REFERRAL No Information VITAL SIGNS No information MEDICATIONS Medication SIG (Take, Route, Frequency, Duration) Notes Start Da te End Date Status Paxil 30 MG 1 tablet in the morning Orally Once a day S 2020 Active buPROPion HCl ER (XL) 150 MG 1 tablet in the morning O rally Once a day for 30 day(s) Jul, Active SEROquel 200 MG 1 tablet at bedtime Orally Once a day for 30 day (s) Jul, Active Paxil 20 MG 1 tablet in the morning Orally Once a day for 30 days Active Adderall XR 20 MG 1 capsule in the morning Orally Once a day for 30 days March, Not-Taking Adderall 10 MG 1 Orally in the afternoon for 10 days 2018 Not-Taking Ambien 10 MG 1 tablet at bedtime as needed Orally in the pm f or 10 days Nov, Not-Taking SEROquel 200 MG 1 tablet at bedtime Orally Once a day for 10 days Not-Taking PROCEDURES No Information RESULTS No Results REASON FOR VISIT Refill MEDICAL (GENERAL) HISTORY Type Description Date Surgical History No Surgical history information Goals Section No Information Health Concerns No Information MEDICAL EQUIPMENT No Information MENTAL STATUS No Information FUNCTIONAL STATUS No Information ASSESSMENTS No Information PLAN OF TREATMENT Medication Medication Name Sig Start Date Stop Date SEROquel 200 MG 1 tablet at bedtime Orally Once a day fo r 30 day(s) Jul, Paxil 30 MG 1 tablet in the morning Orally Once a day Jul buPROPion HCl ER (XL) 150 MG 1 tablet in the morning O rally Once a day for 30 day(s) Jul, Next Appt Details Provider Name:Diamond Birchchleseycee, 08-26 09:20:00 AM, [address] [place] [address], [phone], Insurance Providers Payer Name Payer Address Payer Phone Insured Name Patient Relati onship to Insured Coverage Start Date Coverage End Date [facility]ICAID [facility] [address] [facility] [phone] Evelio Garcia[facility]entin [facility]
[2021-08-26] MEDS ORDERED: WELLTAB38 PO (15:35)
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
[2021-08-26] MEDS ORDERED: CLIN150C17 PO (17:45)
[2021-08-26] MEDS ORDERED: CLINDAMYCIN 150MG CAPSULE PO ONE (17:45)
[2021-08-26 17:56] VITALS: BP 121/69
== END 2021-08-26 18:14 | disposition home or self-care (01) ==
LOC: M ED 15:16
DX: K04.7 Periapical abscess without sinus (principal); F17.200 Nicotine dependence, unspecified, uncomplicated; F41.9 Anxiety disorder, unspecified; F32.9 Major depressive disorder, single episode, unspecified; F90.9 Attention-deficit hyperactivity disorder, unspecified type; R45.5 Hostility; R45.4 Irritability and anger; Z79.899 Other long term (current) drug therapy

== ENCOUNTER → 2023-02-02 | Outpatient (CLI) | payer MEDICAID ==
[~2023-02-02] MED LIST changes: +CLIN150C17 PO; -PARO12.510 PO; +PARO12.56 PO; +PARO25TA12 PO; -PAXI25TA13 PO; -PAXI30TA11 PO; +PAXI30TA12 PO; +WELLTAB38 PO
== END ==
LOC: M OUTALCOH 08:30
PROVIDERS: ATTEND Psychiatry & Neurology Psychiatry
DX: Z13.39 Encounter for screening examination for other mental health and behavioral disorders (principal)